=== PATIENT | male | born 1940 | race Caucasian/White ===

== ENCOUNTER 2022-05-17 17:41 | Emergency (ER) | payer MEDICARE ==
[2022-05-17] MEDS ORDERED: Adacel Vial IM ONE ×2 (19:27→19:35)
--- NOTE | 2022-05-17 20:00 | ERPHSYRPT ---
- History of Present Illness Time Seen by Provider: 05/17/22 18:28 Source: patient Exam Limitations: no limitations Patient Subjective Stated Complaint: "tripped over my boot and fell and hit head on rock" Triage Nursing Assessment: Pt aaox3, c/o pain and bruising to left side head s/p tripping over ortho boot and falling and hitting head on rock in yard at residence. Denies loss of conscousness, perrla, ambulatory, talkative. States pain a solid 5, Has h/o multiple cva's in past. Also c/o left shoulder pain due to fall. Physician History: 81-year-old male with history of diabetes mellitus with a wound on the left foot currently in a postop shoe, got tripped and fell forward hitting a rock on the left forehead without loss of consciousness. He has small abrasion on the left hand knuckle without any pain. Denies any numbness tingling or focal weakness. Complaining of mild to moderate dull aching headache around area of impact. No visual disturbance or difficulty speech. No chest pain palpitations or s hortness of breath before or after the fall. Occurred: just prior to arrival Severity: moderate Head Injury Location: frontal Method of Injury: fell Loss of Consciousness: no loss of consciousness Associated Symptoms: headaches, No nausea, No vomiting, No abdominal pain, No shortness of breath, No diaphoresis, No cough, No chest pain, No loss of appetite, No malaise, No syncope, No seizure, No weakness Hx Influenza Vaccination/Date Given: Yes Travel Risk - International Travel Have you traveled outside of the country in past 3 weeks: No - Coronavirus Screening Are you exhibiting any of the following symptoms?: No - Vaccine Status Have you recieved a Covid-19 vaccination: Yes 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 - Vaccination Dates Date of 2cond Vaccination (if applicable): 2020 - Review of Systems Constitutional: No Symptoms Eyes: No Symptoms Ears, Nose, & Throat: No Symptoms Respiratory: No Symptoms Cardiac: No Symptoms Abdominal/Gastrointestinal: No Symptoms Genitourinary Symptoms: No Symptoms Musculoskeletal: Injury Skin: Skin Lesions Neurological: Headache, No Focal Weakness, No Gait Changes, No Irritability, No Sensory Changes, No Speech Changes Psychological: No Symptoms Hematologic/Lymphatic: No Symptoms Immunological/Allergic: No Symptoms - Past Medical History Pertinent Past Medical History: Yes Neurological History: Stroke ENT History: No Pertinent History Cardiac History: No Pertinent History Respiratory History: No Pertinent History Endocrine Medical History: No Pertinent History Musculoskeletal History: No Pertinent History GI Medical History: No Pertinent History History: No Pertinent History Psycho-Social History: No Pertinent History Male Reproductive Disorders: No Pertinent History - Past Surgical History Past Surgical History: Yes (stint left carotid) Neuro Surgical History: No Pertinent History Cardiac: No Pertinent History Respiratory: No Pertinent History Gastrointestinal: No Pertinent History Genitourinary: No Pertinent History Musculoskeletal: No Pertinent History Male Surgical History: No Pertinent History - Social History Smoking Status: Former smoker How long have you smoked: 50 yrs Exposure to second hand smoke: No Drug Use: none Patient Lives Alone: Yes - Nursing Vital Signs Nursing Vital Signs: Initial Vital Signs Temperature 98.5 F 05/17/22 18:06 Pulse Rate 72 05/17/22 18:06 Respiratory Rate 20 05/17/22 18:06 O2 Sat by Pulse Oximetry 99 05/17/22 18:06 Pain Scale Pain Intensity 5 - [place] Coma Score Best Eye Response (Phyllis): (4) open spontaneously Best Verbal Response ([place]): (5) oriented Best Motor Response (Phyllis): (6) obeys commands [place] Total: 15 - Physical Exam General Appearance: no apparent distress, alert Head Injury: contusions (Left frontal. 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 Exam: normal hearing, normal speech, PERRL Coordination/Gait Exam: normal gait Motor/Sensory Exam: no motor deficit, no sensory deficit, no pronator drift Skin Exam: normal color, other (Abrasion left hand knuckle) SpO2 Interpretation: normal SpO2: 99 O2 Delivery: Room Air Ordered Tests: Active Orders 24 hr Category Date Time Status CERVICAL SPINE WO CONTRAST [CT] Stat Exams 05/17/22 18:02 Taken HEAD WITHOUT CONTRAST [CT] Stat Exams 05/17/22 18:01 Taken Medication Summary Discontinued Medications Generic Name Dose Route Start Last Admin Trade Name Monik PRN Reason Stop Dose Admin Diphtheria/Tetanus/Acell Pertussis 0.5 ml 05/17/22 19:27 05/17/22 19:38 Tdap --Diph,Pertuss(Acell),Tet Vac/Pf 0.5 Ml Vial IM 05/17/22 19:28 0.5 ml .ONCE ONE Administration Diphtheria/Tetanus/Acell Pertussis Confirm 05/17/22 19:35 Tdap --Diph,Pertuss(Acell),Tet Vac/Pf 0.5 Ml Vial Administered 05/17/22 19:36 Dose 0.5 ml IM .STK-MED ONE - Progress Progress: improved Progress Note: 05/17/22 19:58 Given Tylenol for symptomatic relief. Updated tetanus. CT head and cervical spine negative for any acute trauma related findings. Patient has no injury a nywhere else except from forehead and an abrasion on the left hand but no pain there. It was a clear mechanical fall, do not think needs any other work-up and is stable for discharge. Recommended using cane or walker for ambulation to avoid a fall which could be life-threatening because of being on Coumadin. Recommended staying with responsible person for next 24 to 48 hours and patient will go to his daughter's house with frequent neurochecks, discussed signs symptoms of worsening needing return to ER which he seems understanding. 05/17/22 19:59 Counseled pt/family regarding: diagnosis, need for follow-up, rad results - Departure Departure Disposition: Home Clinical Impression: Forehead contusion, Fall Condition: Stable Critical Care Time: No Referrals: BARON WHATLEY [Primary Care Provider] - Follow up/PCP as directed (In 2 days for reevaluation) Instructions: Concussion, Adult (DC), Closed Head Injury (DC) Additional Instructions: Intermittent ice application. Tylenol as needed for pain. Use cane/walker for ambulation all the time to avoid a fall as it could be dangerous because of being on blood thinner. Stay with responsible person for next 24 to 48 hours with frequent neurochecks, follow head injury/concussion instructions and return to ER for any worsening. Follow-up with primary care for reevaluation early next week.
[2022-05-17 20:30] VITALS: BP 154/98; PULSE 78; O2SAT 98
--- NOTE | 2022-05-17 20:51 | XRAY ---
Indication: Head injury following fall. Neck pain. Multiple contiguous axial images obtained through the head without contrast. Comparison: None Age-appropriate global atrophy and mild periventricular degenerative micro-ischemia bilaterally. Small subcentimeter remote infarct left anterior periventricular white matter. No acute intracranial hemorrhage, abnormal extra-axial fluid collection, or mass effect. Fourth ventricle is midline without hydrocephalus. Bony calvarium intact. Visualized paranasal sinuses and mastoid air cells are clear. Impression: Nonacute senile brain with small remote left cerebral infarct. Comment: Preliminary interpretation made by [facility]. No critical discrepancy.
--- NOTE | 2022-05-17 20:55 | XRAY ---
Indication: Head injury following fall. Neck pain. Multiple contiguous axial images obtained through the cervical spine. Sagittal and coronal reformatted images obtained. Comparison: None Osseous structures are demineralized. Axial images are negative for acute fracture, suspicious bony lesions, or spinal canal stenosis. Mild/moderate multilevel degenerative endplate spurring of the visualized cervical thoracic spine. Also mild/moderate multilevel bilateral degenerative facet hypertrophy and moderate atlantoaxial degenerative changes. Sagittal and coronal reformatted images demonstrates lordotic straightening, positional versus paraspinal spasm. Multilevel cervical thoracic degenerative disc space loss. No acute compression fracture, subluxation, or jumped facet. Normal appearing craniocervical junction. Visualized noncontrasted soft tissues demonstrates mild bilateral carotid calcifications and incidental left neck carotid endarterectomy surgical clips. Lung apices demonstrates tiny right apical calcific granulomas. Impression: 1. Cervical lordotic straightening, positional versus paraspinal spasm. 2. Negative acute fracture/subluxation. 3. Osteopenia, multilevel cervical thoracic degenerative spondylosis, bilateral carotid calcifications, and old granulomatous disease. Comment: Preliminary interpretation made by [facility]. No critical discrepancy.
== END 2022-05-17 20:25 | disposition home or self-care (01) ==
LOC: ED 17:41
DX: S00.83XA Contusion of other part of head, initial encounter (principal); W01.198A Fall on same level from slipping, tripping and stumbling with subsequent striking against other object, initial encounter; E11.9 Type 2 diabetes mellitus without complications; S60.512A Abrasion of left hand, initial encounter
CPT/HCPCS: 70450; 72125; 90471; 90715; 99283

== ENCOUNTER 2022-12-31 16:08 | Emergency (ER) | payer MEDICARE ==
--- NOTE | 2022-12-31 16:15 | ERPHSYRPT ---
- History of Present Illness Time Seen by Provider: 12/31/22 16:14 Source: patient Exam Limitations: no limitations Physician History: This an 82-year-old white male patient who has a history of diabetes, hyperlipidemia, gastroesophageal reflux disease and CVA who has been complaining of worsening low back pain with associated right hip pain for the last 2 weeks. Patient denies falls. Patient denies any acute trauma. Patient denies heavy lifting. There is been no popping sensation. Patient has not lost any bowel or bladder control. Patient has no known aortic issues. Patient denies chest pain and he denies shortness of breath. Timing/Duration: week(s) (2), worse Back Pain Location: lumbar spine, paraspinous muscles Back Pain Radiation: buttocks Severity of Pain-Max: moderate (Right hip and buttock) Severity of Pain-Current: moderate Modifying Factors: Improves With: movement Associated Symptoms: lower back pain, muscle spasms, No urinary incontinence, No loss of bowel control, No constipation, No nausea, No vomiting, No problems urinating, No numbness in legs/feet Previous symptoms: no prior history, no recent treatment Allergies/Adverse Reactions: No Known Drug Allergies Allergy (Verified 12/31/22 16:37) Home Medications: Atorvastatin Calcium 80 mg PO HS 12/31/22 [History] Famotidine 20 mg PO BID 12/31/22 [History] Fluoxetine HCl 20 mg [Prozac 20 MG] 20 mg PO BID 12/31/22 [History] Gabapentin 2 tab PO BID 12/31/22 [History] Glipizide [Glipizide ER] 2 tab PO BID 12/31/22 [History] Linaclotide [Linzess] 145 mcg PO DAILY 12/31/22 [History] Metformin HCl 500 mg [Glucophage 500 MG] See Rx Instructions .ROUTE .COMPLEX 12/31/22 [History] Adah-3/Dha/Epa/Fish Oil [Fish Oil 1,400 mg Softgel] 2 cap PO DAILY 12/31/22 [History] Omeprazole 40 mg PO DAILY 12/31/22 [History] Tamsulosin HCl 0.4 mg [Flomax 0.4 MG] 0.4 mg PO BID 12/31/22 [History] Warfarin Sodium See Rx Instructions .ROUTE .COMPLEX 12/31/22 [History] Hx Influenza Vaccination/Date Given: Yes Travel Risk - International Travel Have you traveled outside of the country in past 3 weeks: No - Coronavirus Screening Are you exhibiting any of the following symptoms?: No Close contact with a COVID-19 positive Pt in past 14-21 Days: No - Vaccine Status Have you recieved a Covid-19 vaccination: Yes [employer]: [employer] - Vaccination Dates Date of 2cond Vaccination (if applicable): 2020 - Review of Systems Constitutional: No Symptoms Eyes: No Symptoms Ears, Nose, & Throat: No Symptoms Respiratory: No Symptoms Cardiac: No Symptoms Abdominal/Gastrointestinal: No Symptoms Genitourinary Symptoms: No Symptoms Musculoskeletal: Back Pain, Joint Pain (Right hip) Skin: No Symptoms Neurological: No Symptoms Psychological: No Symptoms Endocrine: No Symptoms Hematologic/Lymphatic: No Symptoms Immunological/Allergic: No Symptoms All Other Systems: Reviewed and Negative - Past Medical History Pertinent Past Medical History: Yes Neurological History: Stroke ENT History: No Pertinent History Cardiac History: No Pertinent History Respiratory History: No Pertinent History Endocrine Medical History: No Pertinent History Musculoskeletal History: No Pertinent History GI Medical History: No Pertinent History History: No Pertinent History Psycho-Social History: No Pertinent History Male Reproductive Disorders: No Pertinent History - Past Surgical History Past Surgical History: Yes (stint left carotid) Neuro Surgical History: No Pertinent History Cardiac: No Pertinent History Respiratory: No Pertinent History Gastrointestinal: No Pertinent History Genitourinary: No Pertinent History Musculoskeletal: No Pertinent History Male Surgical History: No Pertinent History - Social History Smoking Status: Former smoker How long have you smoked: 50 yrs Exposure to second hand smoke: No Drug Use: none Patient Lives Alone: Yes - Nursing Vital Signs Nursing Vital Signs: Initial Vital Signs Temperature 97.6 F 12/31/22 16:24 Pulse Rate 65 12/31/22 16:24 Respiratory Rate 17 12/31/22 16:24 Blood Pressure 158/83 12/31/22 16:24 O2 Sat by Pulse Oximetry 97 12/31/22 16:24 Pain Scale Pain Intensity [Lower Back] 7 Pain Intensity 7 - Physical Exam General Appearance: no apparent distress, alert, anxiety Eye Exam: PERRL/EOMI, eyes nml inspection Ears, Nose, Throat Exam: normal ENT inspection, moist mucous membranes Neck Exam: normal inspection, non-tender, supple, full range of motion Respiratory Exam: airway intact, No chest tenderness, No respiratory distress Gastrointestinal Exam: No tenderness Rectal Exam: not done Back Exam: normal inspection, vertebral tenderness (Lumbar level), decreased range of motion, muscle spasm Extremity Exam: normal inspection (Number level), pelvis stable, tenderness (Right hip) Neurologic Exam: alert, oriented x 3, 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, 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 as tested, normal mood/affect, nml cerebellar function, nml station & gait, sensation nml Skin Exam: normal color, warm, dry Lymphatic Exam: No adenopathy SpO2 Interpretation: normal O2 Delivery: Room Air - Course Nursing assessment & vital signs reviewed: Yes Ordered Tests: Active Orders 24 hr Category Date Time Status ABDOMEN AND PELVIS W/0 CONTRAS [CT] Stat Exams 12/31/22 16:30 Completed RECONSTRUCTION [CT] Stat Exams 12/31/22 16:31 Completed Medication Summary Discontinued Medications Generic Name Dose Route Start Last Admin Trade Name Freq PRN Reason Stop Dose Admin Methylprednisolone Sodium 0 mg 12/31/22 17:36 12/31/22 17:43 Succinate 125 mg/ Sterile IM 12/31/22 17:37 125 mg Water 2 ml STAT ONE Administration Methylprednisolone Sodium Succinate Confirm 12/31/22 17:40 Methylprednis Sod Succ 125 Mg/2 Ml Vial Administered 12/31/22 17:41 Dose 125 mg .ROUTE .STK-MED ONE Orphenadrine Citrate 100 mg 12/31/22 17:36 12/31/22 17:41 Orphenadrine Citrate 100 Mg Er Tab PO 12/31/22 17:37 Not Given STAT ONE Oxycodone/Acetaminophen 1 tab 12/31/22 17:36 12/31/22 17:43 Oxycodone Hcl/Apap 5 Mg/325 Mg Tablet PO 12/31/22 17:37 1 tab STAT STA Administration Oxycodone/Acetaminophen Confirm 12/31/22 17:40 Oxycodone Hcl/Apap 5 Mg/325 Mg Tablet Administered 12/31/22 17:41 Dose 1 tab .ROUTE .STK-MED ONE Sterile Water Confirm 12/31/22 17:40 Water For Injection,Sterile 10 Ml Vial Administered 12/31/22 17:41 Dose 10 ml IJ .STK-MED ONE - Progress Progress: improved, pain not gone completely Progress Note: 12/31/22 17:08 This patient's medical issue is 1 of low to moderate complexity. The level of complexity and the work-up performed is based on review of the patient's past medical history, review the patient's medication list, review of the patient's drug allergy list, history present illness and physical findings on examination. This patient's work-up includes CT scan of the abdomen and pelvis with reconstruction of the lumbar spine to include the right hip. We also want to evaluate aorta in the abdomen in this elderly patient. 12/31/22 18:10 CT scan of the abdomen pelvis without contrast shows chronic findings without abdominal aortic aneurysm. There is a tiny left mid abdomen mesenteric adenitis with mild diffuse fecal stasis. No acute significant findings. CT scan lumbar spine reconstruction without contrast shows chronic L4-L5 degenerative changes as well as bilateral SI joint degenerative changes. No evidence of acute fracture, subluxation or dislocations. Counseled pt/family regarding: diagnosis, need for follow-up, rad results Medical Desision Making - Independent Historian Additional History obtained from: Child - Diagnostic Testing Diagnostic test were ordered, analyzed, and reviewed by me: Yes Radiological Interpretation: Reviewed by me, Teleradiologist Report - Risk of complications The pt has a mod risk of morbidity or mortality based on: Need for prescription drug management - Departure Departure Disposition: Home Clinical Impression: Back pain, Right hip pain, Mesenteric adenitis Condition: Stable Critical Care Time: No Referrals: BRADEN BEATTY [Primary Care Provider] - Follow up/PCP as directed Additional Instructions: Take your medication as prescribed. Follow-up with your primary care provider tomorrow, 01/01/2023, by phone to make an appointment for further evaluation management. Prescriptions: Oxycodone HCl/Acetaminophen [Percocet 5-325 mg Tablet] 1 each PO Q12H PRN PRN #6 tablet MDD 2 PRN Reason: Moderate To Severe Pain
[2022-12-31 16:48] VITALS: TEMP 97.6
[2022-12-31 17:30] VITALS: RESP 18
[2022-12-31] MEDS ORDERED: PERCOCET TABLET 5/325MG PO STA (17:36)
[2022-12-31] MEDS ORDERED: solu-MEDROL 125 MG, Sterile H2O 10 ml 2 ML IM ONE ×2 (17:36)
[2022-12-31] MEDS ORDERED: Norflex 100 MG Tablet PO ONE (17:36)
[2022-12-31] MEDS ORDERED: PERCOCET TABLET 5/325MG ONE (17:40)
[2022-12-31] MEDS ORDERED: solu-MEDROL ONE (17:40)
[2022-12-31] MEDS ORDERED: Sterile H2O 10 ml IJ ONE (17:40)
--- NOTE | 2022-12-31 18:03 | XRAY ---
Indication: Lumbar and right hip pain. Multiple contiguous axial images obtained through the abdomen and pelvis without contrast. Comparison: None Lung bases demonstrates moderate scattered fibrosis/scarring bilaterally. No infiltrate or effusion. Heart borderline enlarged. Small hiatal hernia. Stomach distended with food/fluid. Noncontrasted stomach and bowel loops appear nonobstructed with normal appearing appendix. Mild scattered colonic fecal debris throughout. Scattered tiny left mid abdomen mesenteric nodes with stranding favoring adenitis. Enlarged prostate gland with radiation seeds. No free fluid/air. Remaining liver, gallbladder, pancreas, spleen, adrenal glands, kidneys, ureters, and bladder are unremarkable for noncontrast exam. Mild scattered aortoiliac calcifications without AAA. Osseous structures intact with osteopenia and mild/moderate flowing osteophytes throughout the spine favoring diffuse idiopathic skeletal hyperostosis (DISH). Mild degenerative changes both hips. No suspicious bony lesions. Moderate bilateral fatty inguinal hernias. Impression: 1. Mild diffuse fecal stasis. 2. Tiny left mid abdomen mesenteric adenitis. 3. Chronic findings including pulmonary fibrosis/scarring, borderline cardiomegaly, hiatal hernia, enlarged prostate with radiation seeds, chronic bony findings, bilateral fatty inguinal hernias, and arteriosclerotic disease.
--- NOTE | 2022-12-31 18:07 | XRAY ---
Indication: Back and right hip pain. Axial, coronal, and sagittal reformatted images lumbar spine obtained using raw data from same day CT abdomen/pelvis. Comparison: None Osseous structures demineralized. Axial images negative for acute fracture, suspicious bony lesions, or spinal canal stenosis. Mild/moderate multilevel thoracolumbar flowing osteophytes favoring diffuse idiopathic skeletal hyperostosis (DISH). Mild broad-based L4-L5 disc osteophyte complex. Facets are symmetric. Mild degenerative changes both SI joints. Sagittal and coronal reformatted images demonstrates normal lumbar alignment with L4-L5 disc space narrowing. No acute compression fracture or subluxation. CT abdomen/pelvis reported separately. Impression: Chronic findings including osteopenia, DISH, L4-L5 degenerative disc disease, and bilateral SI joints degenerative changes. Remaining CT lumbar spine negative.
[2022-12-31 18:29] VITALS: BP 184/91; PULSE 64; O2SAT 99
== END 2022-12-31 18:29 | disposition home or self-care (01) ==
LOC: ED 16:08
DX: M54.50 Low back pain, unspecified (principal); M25.551 Pain in right hip; I88.0 Nonspecific mesenteric lymphadenitis; E11.9 Type 2 diabetes mellitus without complications; E78.5 Hyperlipidemia, unspecified; Z79.84 Long term (current) use of oral hypoglycemic drugs; Z79.01 Long term (current) use of anticoagulants; Z79.899 Other long term (current) drug therapy
CPT/HCPCS: 74176; 76376; 96372; 99283; J2930; A9270-GY

== ENCOUNTER 2023-05-28 11:06 | Emergency (ER) | payer MEDICARE ==
[2023-05-28 11:24] VITALS: TEMP 97
--- NOTE | 2023-05-28 11:39 | ERPHSYRPT ---
- History of Present Illness Time Seen by Provider: 05/28/23 11:10 Historian: patient, family Exam Limitations: no limitations Patient Subjective Stated Complaint: pt here for lower abd pain that started early this morning, sharp pain, no fever, no vomitng,last bm thursday Triage Nursing Assessment: pt alert, resp easy, walked in, skin w.d.p, swelling to lower legs that is normal for him, pt has banddage to right arm and back where he had spots removed Physician History: 82 years old male presented in the ER with chief complaint of lower abdominal pain waking him up from sleep around 4 AM. Patient reports he has a constant urge to have bowel movement. He has been trying but not able to have 1. Last bowel movement was 2 days ago. Reports dull aching to sharp lower abdominal pain but more on the left side without associated nausea or vomiting. Denies any urinary complaints. Does have history of constipation, taking stool softeners and fiber supplements. Patient rates pain 6/10 intensity but does not want any pain medications. Allergies/Adverse Reactions: No Known Drug Allergies Allergy (Verified 05/28/23 11:19) Home Medications: Atorvastatin Calcium 80 mg PO HS 12/31/22 [History] Famotidine 20 mg PO BID 12/31/22 [History] Fluoxetine HCl 20 mg [Prozac 20 MG] 20 mg PO BID 12/31/22 [History] Gabapentin 2 tab PO BID 12/31/22 [History] Glipizide [Glipizide ER] 2 tab PO BID 12/31/22 [History] Linaclotide [Linzess] 145 mcg PO DAILY 12/31/22 [History] Metformin HCl 500 mg [Glucophage 500 MG] See Rx Instructions .ROUTE .COMPLEX 12/31/22 [History] [place]-3/Dha/Epa/Fish Oil [Fish Oil 1,400 mg Softgel] 2 cap PO DAILY 12/31/22 [History] Omeprazole 40 mg PO DAILY 12/31/22 [History] Tamsulosin HCl 0.4 mg [Flomax 0.4 MG] 0.4 mg PO BID 12/31/22 [History] Warfarin Sodium See Rx Instructions .ROUTE .COMPLEX 12/31/22 [History] Hx Tetanus, Diphtheria Vaccination/Date Given: No Hx Influenza Vaccination/Date Given: Yes Hx Pneumococcal Vaccination/Date Given: Yes Immunizations Up to Date: Yes Travel Risk - International Travel Have you traveled outside of the country in past 3 weeks: No - Coronavirus Screening Are you exhibiting any of the following symptoms?: No Close contact with a COVID-19 positive Pt in past 14-21 Days: No - Vaccine Status Have you recieved a Covid-19 vaccination: Yes 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[employer] - Vaccination Dates Date of 2cond Vaccination (if applicable): 2020 - Review of Systems Constitutional: No Symptoms Eyes: No Symptoms Respiratory: No Symptoms Cardiac: No Symptoms Abdominal/Gastrointestinal: Abdominal Pain, Constipation Genitourinary Symptoms: No Symptoms Musculoskeletal: Arthralgias Skin: No Symptoms Neurological: Irritability Endocrine: No Symptoms Hematologic/Lymphatic: No Symptoms - Past Medical History Pertinent Past Medical History: Yes Neurological History: Stroke ENT History: No Pertinent History Cardiac History: No Pertinent History, High Cholesterol Respiratory History: No Pertinent History Endocrine Medical History: Diabetes Type II Musculoskeletal History: No Pertinent History GI Medical History: No Pertinent History History: No Pertinent History Psycho-Social History: No Pertinent History Male Reproductive Disorders: Prostate Problems Other Medical History: carotid artery blockage, poor circulation to bilat lower extremities - Past Surgical History Past Surgical History: Yes (stint left carotid) Neuro Surgical History: No Pertinent History Cardiac: No Pertinent History Respiratory: No Pertinent History Gastrointestinal: No Pertinent History Genitourinary: No Pertinent History Musculoskeletal: No Pertinent History Male Surgical History: No Pertinent History Other Surgical History: stents in bilat legs due to poor circulation - Social History Smoking Status: Former smoker How long have you smoked: 50 yrs Exposure to second hand smoke: No Drug Use: none Patient Lives Alone: Yes - Nursing Vital Signs Nursing Vital Signs: Initial Vital Signs Temperature 97.0 F 05/28/23 11:23 Pulse Rate 71 05/28/23 11:23 Respiratory Rate 16 05/28/23 11:23 Blood Pressure 152/67 05/28/23 11:23 O2 Sat by Pulse Oximetry 96 05/28/23 11:23 Pain Scale Pain Intensity 4 - Physical Exam General Appearance: no apparent distress, alert Eye Exam: PERRL/EOMI Ears, Nose, Throat Exam: normal ENT inspection Neck Exam: normal inspection, full range of motion Respiratory Exam: normal breath sounds, lungs clear Cardiovascular Exam: regular rate/rhythm, normal heart sounds Gastrointestinal/Abdomen Exam: soft, normal bowel sounds, tenderness (Mild tenderness suprapubic and left lower quadrant) Extremity Exam: normal inspection, normal range of motion Neurologic Exam: alert, oriented x 3, cooperative Skin Exam: normal color SpO2 Interpretation: normal SpO2: 96 O2 Delivery: Room Air Lab/Rad Data: Laboratory Result Diagrams 05/28/23 12:05 05/28/23 11:36 Laboratory Results 05/28/23 05/28/23 05/28/23 Range/Units 13:56 12:15 12:05 WBC 7.8 (4.0-10.5) x10^3/uL RBC 4.16 (4.1-5.6) x10^6/uL Hgb 13.3 (12.5-18.0) g/dL Hct 40.3 L (42-50) % MCV 96.9 (78-100) fL MCH 32.0 (26-32) pg MCHC 33.0 (32-36) g/dL RDW 14.0 (11.5-14.0) % Plt Count 241 (150-450) x10^3/uL MPV 9.2 (7.5-11.0) fL Gran % 78.3 H (36.0-66.0) % Immature Gran % (Auto) 0.4 (0.00-0.4) % Nucleat RBC Rel Count 0.0 (0.00-0.1) % Eos # (Auto) 0.13 (0-0.5) x10^3/uL Immature Gran # (Auto) 0.03 (0.00-0.03) x10^3u/L Absolute Lymphs (auto) 0.89 L (1.0-4.6) x10^3/uL Absolute Monos (auto) 0.59 (0.0-1.3) x10^3/uL Absolute Nucleated RBC 0.00 (0.00-0.01) x10^3u/L Lymphocytes % 11.5 L (24.0-44.0) % Monocytes % 7.6 (0.0-12.0) % Eosinophils % 1.7 (0.00-5.0) % Basophils % 0.5 (0.0-0.4) % Absolute Granulocytes 6.08 (1.4-6.9) x10^3/uL Basophils # 0.04 (0-0.4) x10^3/uL PT (9.4-12.5) SECONDS INR (0.8-3.0) Sodium (137-145) mmol/L Potassium (3.5-5.1) mmol/L Chloride (98-107) mmol/L Carbon Dioxide (22-30) mmol/L Anion Gap (5-15) MEQ/L BUN (9-20) mg/dL Creatinine (0.66-1.25) mg/dL Estimated GFR ML/MIN Glucose (74-106) mg/dL Lactic Acid 1.8 (0.4-2.0) Calcium (8.4-10.2) mg/dL Total Bilirubin (0.2-1.3) mg/dL AST (17-59) U/L ALT (0-50) U/L Alkaline Phosphatase (38-126) U/L Serum Total Protein (6.3-8.2) g/dL Albumin (3.5-5.0) g/dL Lipase (23-300) U/L Urine Color Yellow (Yellow) Urine Appearance Clear (Clear) Urine pH 7.0 (4.6-8.0) Ur Specific [place] 1.015 (1.005-1.030) Urine Protein 30 (Negative) Urine Glucose (UA) Negative (Negative) mg/dL Urine Ketones Negative (Negative) Urine Blood Small A (Negative) Urine Nitrite Negative (Negative) Urine Bilirubin Negative (Negative) Urine Urobilinogen 1.0 A (0.2) mg/dL Ur Leukocyte Esterase Negative (Negative) U Hyaline Cast (Auto) NONE SEEN (0-2) /LPF Urine Microscopic RBC 6-10 A (0-5) /HPF Urine Microscopic WBC 0-2 (0-5) /HPF Ur Epithelial Cells None Seen (None Seen) /HPF Urine Bacteria None Seen (None Seen) /HPF Urine Culture Reflexed YES (NO) 05/28/23 05/28/23 Range/Units 11:36 11:36 WBC (4.0-10.5) x10^3/uL RBC (4.1-5.6) x10^6/uL Hgb (12.5-18.0) g/dL Hct (42-50) % MCV (78-100) fL MCH (26-32) pg MCHC (32-36) g/dL RDW (11.5-14.0) % Plt Count (150-450) x10^3/uL MPV (7.5-11.0) fL Gran % (36.0-66.0) % Immature Gran % (Auto) (0.00-0.4) % Nucleat RBC Rel Count (0.00-0.1) % Eos # (Auto) (0-0.5) x10^3/uL Immature Gran # (Auto) (0.00-0.03) x10^3u/L Absolute Lymphs (auto) (1.0-4.6) x10^3/uL Absolute Monos (auto) (0.0-1.3) x10^3/uL Absolute Nucleated RBC (0.00-0.01) x10^3u/L Lymphocytes % (24.0-44.0) % Monocytes % (0.0-12.0) % Eosinophils % (0.00-5.0) % Basophils % (0.0-0.4) % Absolute Granulocytes (1.4-6.9) x10^3/uL Basophils # (0-0.4) x10^3/uL PT 47.1 H (9.4-12.5) SECONDS INR 4.79 H (0.8-3.0) Sodium 138 (137-145) mmol/L Potassium 4.5 (3.5-5.1) mmol/L Chloride 107 (98-107) mmol/L Carbon Dioxide 23 (22-30) mmol/L Anion Gap 12.8 (5-15) MEQ/L BUN 22 H (9-20) mg/dL Creatinine 1.25 (0.66-1.25) mg/dL Estimated GFR 58.2 ML/MIN Glucose 152 H (74-106) mg/dL Lactic Acid (0.4-2.0) Calcium 8.5 (8.4-10.2) mg/dL Total Bilirubin 0.80 (0.2-1.3) mg/dL AST 26 (17-59) U/L ALT 20 (0-50) U/L Alkaline Phosphatase 74 (38-126) U/L Serum Total Protein 7.5 (6.3-8.2) g/dL Albumin 4.1 (3.5-5.0) g/dL Lipase 87 (23-300) U/L Urine Color (Yellow) Urine Appearance (Clear) Urine pH (4.6-8.0) Ur Specific [place] (1.005-1.030) Urine Protein (Negative) Urine Glucose (UA) (Negative) mg/dL Urine Ketones (Negative) Urine Blood (Negative) Urine Nitrite (Negative) Urine Bilirubin (Negative) Urine Urobilinogen (0.2) mg/dL Ur Leukocyte Esterase (Negative) U Hyaline Cast (Auto) (0-2) /LPF Urine Microscopic RBC (0-5) /HPF Urine Microscopic WBC (0-5) /HPF Ur Epithelial Cells (None Seen) /HPF Urine Bacteria (None Seen) /HPF Urine Culture Reflexed (NO) - Progress Progress: improved, re-examined Progress Note: 05/28/23 15:20 82 years old is evaluated in the ER for lower abdominal pain with constant desire to have a bowel movement since morning. Patient has minimal tenderness in the lower abdomen especially in the left lower quadrant. Declined to have any pain medication. Not in any distress. Workup showed normal white count, fairly unremarkable chemistries and no UTI. CT abdomen pelvis did not show any acute finding in the lower abdomen but chronic. No obstruction, colitis, perforation, diverticulitis or cystitis reported. No kidney stones. Does have a incidental finding of bilateral bibasilar airspace opacities. Discussed the results of workup with patient and family in the want to go for treatment for pneumonia. I will start him on cefdinir. Patient is on Coumadin and INR is 4.79. I have discussed with pharmacist Reed who recommended holding off on Coumadin for next 2 days and recheck on Thursday and frequent monitoring while being on antibiotics. I have discussed the plan of Coumadin monitoring with patient and daughter who manages patient's healthcare staff and they are okay with it. Recommended taking Tylenol as needed and not to take any NSAIDs. Discussed signs symptoms of worsening needing return to ER which he seems understanding. Stable for discharge. Counseled pt/family regarding: lab results, diagnosis, rad results Medical Desision Making - Independent Historian Additional History obtained from: Child - Discussion of managment Care discussed with:: on-call "doc" (Pharm.Ainsley Mcbride) Reviewed:: Test results Agreed on:: Treatment plan, need for follow-up - Risk of complications The pt has a mod risk of morbidity or mortality based on: Need for prescription drug management - Departure Departure Disposition: Home Clinical Impression: Bilateral pneumonia, Lower abdominal pain, Elevated INR (international normalized ratio) Condition: Stable Critical Care Time: No Referrals: BRADEN BEATTY [Primary Care Provider] - Follow up with PCP 1 day Instructions: Pneumonia, Adult (DC), Severe Abdominal Pain, Adult (DC) Additional Instructions: Take Tylenol as needed. Do not take ibuprofen Aleve or any other NSAIDs. Monitor your INR regularly. Hold off on your Coumadin for today and tomorrow and recheck day after tomorrow before restarting. Follow-up with primary care for reevaluation in 1 to 2 days. Return to ER for any worsening. Prescriptions: Cefdinir 300 mg PO BID 8 Days #16 cap
--- NOTE | 2023-05-28 12:21 | XRAY ---
Indication: Lower abdomen pain. Multiple contiguous axial images obtained through the abdomen and pelvis without contrast. Comparison: December 31, 2022 Lung again demonstrates scattered fibrosis/scarring. New bibasilar patchy groundglass airspace disease without consolidation/effusion. Heart again borderline enlarged. Stable small hiatal hernia. Noncontrasted stomach and bowel loops again nonobstructed with normal appearing appendix. Left midabdomen again demonstrates tiny mesenteric nodes with stranding favoring adenitis. Stable enlarged prostate gland with radiation seeds. No free fluid/air. Remaining liver, gallbladder, pancreas, spleen, adrenal glands, kidneys, ureters, and bladder are unremarkable for noncontrast exam. Stable mild scattered aortoiliac calcifications without AAA. Osseous structures intact again with osteopenia, flowing osteophytes to the spine and mild bilateral hip degenerative changes. Stable moderate-sized bilateral fatty inguinal hernias. Impression: 1. New bibasilar patchy ground glass airspace disease. 2. Again left midabdomen mesenteric adenitis. 3. Chronic findings including pulmonary fibrosis/scarring, borderline cardiomegaly, hiatal hernia, enlarged prostate with radiation seeds, chronic bony findings, bilateral fatty inguinal hernias, and arteriosclerotic disease.
[2023-05-28 12:26] LABS: Absolute Neutrophil Ct (ANC) 6.08 x10^3/uL (1.4-6.9); BASOPHIL % 0.5 % (0.0-0.4); Basophil (Absolute #) 0.04 x10^3/uL (0-0.4); Eosinophil % 1.7 % (0.00-5.0); Eosinophil (Absolute #) 0.13 x10^3/uL (0-0.5); Hematocrit 40.3 % (42-50); Hemoglobin 13.3 g/dL (12.5-18.0); IMMATURE GRAN # 0.03 x10^3u/L (0.00-0.03); IMMATURE GRAN % 0.4 % (0.00-0.4); Lymphocyte (Absolute #) 0.89 x10^3/uL (1.0-4.6); Lymphocytes % 11.5 % (24.0-44.0); Mean Cell Volume 96.9 fL (78-100); Mean Platelet Volume 9.2 fL (7.5-11.0); Monocyte (Absolute #) 0.59 x10^3/uL (0.0-1.3); Monocytes % 7.6 % (0.0-12.0); Neutrophil % 78.3 % (36.0-66.0); Platelet Count 241 x10^3/uL (150-450); Red Blood Count 4.16 x10^6/uL (4.1-5.6); White Blood Count 7.8 x10^3/uL (4.0-10.5)
[2023-05-28 12:42] LABS: ALBUMIN 4.1 g/dL (3.5-5.0); ANION GAP 12.8 MEQ/L (5-15); BILIRUBIN,TOTAL 0.8 mg/dL (0.2-1.3); Calcium 8.5 mg/dL (8.4-10.2); Creatinine 1 1.25 mg/dL (0.66-1.25); EST GLOMERULAR FILTRATION RATE 58.2 ML/MIN; Potassium 4.5 mmol/L (3.5-5.1); Total Protein 7.5 g/dL (6.3-8.2)
[2023-05-28 14:03] VITALS: BP 160/76; PULSE 82; RESP 17
[2023-05-28 14:13] LABS: INR 4.79 (0.8-3.0); PROTIME 47.1 SECONDS (9.4-12.5)
[2023-05-28 14:53] LABS: Appearance Clear (Clear); Bacteria None Seen /HPF (None Seen); Bilirubin Negative (Negative); Blood Small (Negative); Epithelial Cells None Seen /HPF (None Seen); Glucose, Urine Negative (Negative); Hyaline Casts NONE SEEN /LPF (0-2); Ketones Negative (Negative); Leukocyte Esterase Negative (Negative); Nitrite Negative (Negative); Protein,Urine Dip 30 (Negative); Specific Gravity 1.015 (1.005-1.030); WBC 0-2 /HPF (0-5)
[2023-05-28 14:55] LABS: ADD URINE CULTURE? YES (NO)
[2023-05-28 15:25] VITALS: O2SAT 96
== END 2023-05-28 15:53 | disposition home or self-care (01) ==
LOC: ED 11:06
DX: J18.9 Pneumonia, unspecified organism (principal); R10.30 Lower abdominal pain, unspecified; R79.1 Abnormal coagulation profile; E78.5 Hyperlipidemia, unspecified; E11.9 Type 2 diabetes mellitus without complications; Z79.84 Long term (current) use of oral hypoglycemic drugs; Z79.01 Long term (current) use of anticoagulants; Z79.899 Other long term (current) drug therapy
CPT/HCPCS: 36415; 74176; 80053; 81001; 83605; 83690; 85025; 85610; 87086; 99283

== ENCOUNTER 2023-06-24 15:41 | Observation (INO) | payer MEDICARE ==
--- NOTE | 2023-06-24 15:58 | ERPHSYRPT ---
- History of Present Illness Time Seen by Provider: 06/24/23 15:58 Source: patient Exam Limitations: no limitations Physician History: This is an 82-year-old white male patient who states he has no symptoms but was told he needed to come to the emergency department because of his elevated PTT/INR that was drawn today. Patient was sent to us from the clinic. Patient ambulated on his own into the emergency room #4. I reviewed the out patient chest x-ray results that the radiologist interpreted. The x-ray was performed today secondary to complaint listed as persistent cough for 2 weeks. Patient denies that when we spoke to him in the emergency department today. The impression states mild left lower lobe interstitial alveolar opacities. Possible pneumonia in the right clinical setting. Patient has not had a fever. He is not short of breath. Patient's laboratory data was simply a PT/INR that was drawn today. It shows a PTT of 73.4 and an INR of 7.7 respectively. Patient does have a history of peripheral vascular disease (left carotid stent), prostate issues, stroke in the distant past, diabetes and gastroesophageal reflux disease as well as hyperlipidemia. He has not noticed any bleeding whatsoever from any site. Patient does not have chest pain. He has no abdominal pain. Timing/Duration: today Severity: mild Associated Symptoms: denies symptoms Allergies/Adverse Reactions: No Known Drug Allergies Allergy (Verified 06/24/23 15:57) Home Medications: Atorvastatin Calcium 80 mg PO HS 12/31/22 [History] Famotidine 20 mg PO BID 12/31/22 [History] Fluoxetine HCl 20 mg [Prozac 20 MG] 20 mg PO BID 12/31/22 [History] Gabapentin 2 tab PO BID 12/31/22 [History] Glipizide [Glipizide ER] 2 tab PO BID 12/31/22 [History] Metformin HCl 500 mg [Glucophage 500 MG] See Rx Instructions .ROUTE .COMPLEX 12/31/22 [History] [place]-3/Dha/Epa/Fish Oil [Fish Oil 1,400 mg Softgel] 2 cap PO DAILY 12/31/22 [History] Omeprazole 40 mg PO DAILY 12/31/22 [History] Tamsulosin HCl 0.4 mg [Flomax 0.4 MG] 0.4 mg PO BID 12/31/22 [History] Warfarin Sodium See Rx Instructions .ROUTE .COMPLEX 12/31/22 [History] Metoprolol Succinate 50 mg [Toprol Xl 50 MG] 50 mg PO DAILY 06/24/23 [History] Pioglitazone 30 mg [Actos 30 MG] 30 mg PO DAILY 06/24/23 [History] Hx Tetanus, Diphtheria Vaccination/Date Given: No Hx Influenza Vaccination/Date Given: Yes Hx Pneumococcal Vaccination/Date Given: Yes Travel Risk - International Travel Have you traveled outside of the country in past 3 weeks: No - Coronavirus Screening Are you exhibiting any of the following symptoms?: No Close contact with a COVID-19 positive Pt in past 14-21 Days: No - Vaccine Status Have you recieved a Covid-19 vaccination: Yes 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 Dates Date of 2cond Vaccination (if applicable): 2020 - Review of Systems Constitutional: No Symptoms Eyes: No Symptoms Ears, Nose, & Throat: No Symptoms Respiratory: No Symptoms Cardiac: No Symptoms Abdominal/Gastrointestinal: No Symptoms Genitourinary Symptoms: No Symptoms Musculoskeletal: No Symptoms Skin: No Symptoms Neurological: No Symptoms Psychological: No Symptoms Endocrine: No Symptoms Hematologic/Lymphatic: No Symptoms Immunological/Allergic: No Symptoms All Other Systems: Reviewed and Negative - Past Medical History Pertinent Past Medical History: Yes Neurological History: Stroke ENT History: No Pertinent History Cardiac History: No Pertinent History, High Cholesterol Respiratory History: No Pertinent History Endocrine Medical History: Diabetes Type II Musculoskeletal History: No Pertinent History GI Medical History: No Pertinent History History: No Pertinent History Psycho-Social History: No Pertinent History Male Reproductive Disorders: Prostate Problems Other Medical History: carotid artery blockage, poor circulation to bilat lower extremities - Past Surgical History Past Surgical History: Yes (stint left carotid) Neuro Surgical History: No Pertinent History Cardiac: No Pertinent History Respiratory: No Pertinent History Gastrointestinal: No Pertinent History Genitourinary: No Pertinent History Musculoskeletal: No Pertinent History Male Surgical History: No Pertinent History Other Surgical History: stents in bilat legs due to poor circulation - Social History Smoking Status: Former smoker How long have you smoked: 50 yrs Exposure to second hand smoke: No Drug Use: none Patient Lives Alone: Yes - Nursing Vital Signs Nursing Vital Signs: Initial Vital Signs Temperature 97.1 F 06/24/23 15:41 Pulse Rate 58 L 06/24/23 15:41 Respiratory Rate 18 06/24/23 15:41 Blood Pressure 144/53 06/24/23 15:41 O2 Sat by Pulse Oximetry 98 06/24/23 15:41 Pain Scale Pain Intensity 0 - Physical Exam General Appearance: no apparent distress, alert, anxiety, obese Eye Exam: PERRL/EOMI, eyes nml inspection Ears, Nose, Throat Exam: normal ENT inspection, moist mucous membranes Neck Exam: normal inspection, non-tender, supple, full range of motion Respiratory Exam: normal breath sounds, lungs clear, airway intact, No chest tenderness, No respiratory distress Cardiovascular Exam: regular rate/rhythm, normal heart sounds, normal peripheral pulses Gastrointestinal/Abdomen Exam: soft, normal bowel sounds, No tenderness Rectal Exam: not done Back Exam: normal inspection, normal range of motion, No CVA tenderness, No vertebral tenderness Extremity Exam: normal inspection, normal range of motion, pelvis stable Neurologic Exam: alert, oriented x 3, cooperative, 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, normal mood/affect, nml cerebellar function, nml station & gait, sensation nml Skin Exam: normal color, warm, dry Lymphatic Exam: No adenopathy SpO2 Interpretation: normal O2 Delivery: Room Air - Course Nursing assessment & vital signs reviewed: Yes Ordered Tests: Active Orders 24 hr Category Date Time Status IV Insertion STAT Care 06/24/23 16:24 Active Pulse Oximetry (ED) STAT Care 06/24/23 16:24 Active BLOOD CULTURE Stat Lab 06/24/23 17:05 Received CBC W DIFF Stat Lab 06/24/23 16:50 Completed CMP Stat Lab 06/24/23 16:50 Completed MAGNESIUM Stat Lab 06/24/23 16:50 Completed NT PRO BNPII Stat Lab 06/24/23 16:50 Completed Transfer Order Routine Transfer 06/24/23 Ordered Medication Summary Discontinued Medications Generic Name Dose Route Start Last Admin Trade Name Freq PRN Reason Stop Dose Admin Ceftriaxone Sodium 1 gm in 100 mls @ 200 mls/hr 06/24/23 16:45 06/24/23 17:46 Rocephin 1 Gm / 100 Ml Nacl IV 06/24/23 17:14 Infused STAT ONE Infusion Ceftriaxone Sodium Confirm 06/24/23 17:00 Rocephin 1 Gm / 100 Ml Nacl Administered 06/24/23 17:01 Dose 1 gm in 100 mls @ ud IV .STK-MED ONE Phytonadione 10 mg 06/24/23 16:28 06/24/23 17:10 Phytonadione 10 Mg/Ml Amp SQ 06/24/23 16:29 10 mg STAT ONE Administration Phytonadione Confirm 06/24/23 17:00 Phytonadione 10 Mg/Ml Amp Administered 06/24/23 17:01 Dose 10 mg .ROUTE .STK-MED ONE Lab/Rad Data: Laboratory Result Diagrams 06/24/23 16:50 06/24/23 16:50 Laboratory Results 06/24/23 06/24/23 06/24/23 Range/Units 16:50 16:50 16:50 WBC 6.0 (4.0-10.5) x10^3/uL RBC 4.01 L (4.1-5.6) x10^6/uL Hgb 12.8 (12.5-18.0) g/dL Hct 39.9 L (42-50) % MCV 99.5 (78-100) fL MCH 31.9 (26-32) pg MCHC 32.1 (32-36) g/dL RDW 14.7 H (11.5-14.0) % Plt Count 197 (150-450) x10^3/uL MPV 9.7 (7.5-11.0) fL Gran % 65.4 (36.0-66.0) % Immature Gran % (Auto) 0.3 (0.00-0.4) % Nucleat RBC Rel Count 0.0 (0.00-0.1) % Eos # (Auto) 0.31 (0-0.5) x10^3/uL Immature Gran # (Auto) 0.02 (0.00-0.03) x10^3u/L Absolute Lymphs (auto) 1.10 (1.0-4.6) x10^3/uL Absolute Monos (auto) 0.60 (0.0-1.3) x10^3/uL Absolute Nucleated RBC 0.00 (0.00-0.01) x10^3u/L Lymphocytes % 18.3 L (24.0-44.0) % Monocytes % 10.0 (0.0-12.0) % Eosinophils % 5.2 H (0.00-5.0) % Basophils % 0.8 (0.0-0.4) % Absolute Granulocytes 3.93 (1.4-6.9) x10^3/uL Basophils # 0.05 (0-0.4) x10^3/uL Sodium 141 (137-145) mmol/L Potassium 4.6 (3.5-5.1) mmol/L Chloride 107 (98-107) mmol/L Carbon Dioxide 27 (22-30) mmol/L Anion Gap 12.6 (5-15) MEQ/L BUN 28 H (9-20) mg/dL Creatinine 1.35 H (0.66-1.25) mg/dL Estimated GFR 53.1 ML/MIN Glucose 169 H (74-106) mg/dL Calcium 8.3 L (8.4-10.2) mg/dL Magnesium 1.8 (1.6-2.3) mg/dL Total Bilirubin 0.60 (0.2-1.3) mg/dL AST 25 (17-59) U/L ALT 25 (0-50) U/L Alkaline Phosphatase 78 (38-126) U/L NT-Pro-B Natriuret Pep 1050 (<300) pg/mL Serum Total Protein 7.0 (6.3-8.2) g/dL Albumin 4.1 (3.5-5.0) g/dL - Progress Progress: unchanged Progress Note: 06/24/23 16:43 This patient's medical issue is 1 of moderate to high complexity. The level of complexity and the workup performed is based on review of the patient's past medical history, review of the patient's medication list, review of the patient's drug allergy list, history present illness and physical findings on examination. This patient's workup includes placement of intravenous line, CBC CMP, COVID swabs. We will also provide the patient with 10 mg subcutaneously of vitamin K. I will contact the hospitalist regarding placing this patient in observation. I reviewed the chest x-ray results that were interpreted by the radiologist. I will also provide the patient with Rocephin 1 g intravenously. 06/24/23 17:46 I interpreted the patient's laboratory data results. The patient's hemoglobin is 12.8. The remainder of the laboratory results, other than the PT/INR, show no additional acute, emergent findings. I did speak with Dr. Sharpe, the telehospitalist. We discussed but the plan was pending the patient's hemoglobin level. The patient's hemoglobin level is normal. We will place the patient in observation if okay with her. We have placed an additional call to the telehospitalist. 06/24/23 18:[address] Sharpe, the telehospitalist. Patient white count was normal. COVID studies are not yet back. She does except the patient to be placed in ob servation. Counseled pt/family regarding: lab results, diagnosis Medical Desision Making - Discussion of managment Care discussed with:: hospitalist - Diagnostic Testing Diagnostic test were ordered, analyzed, and reviewed by me: Yes Radiological Interpretation: Reviewed by me, Teleradiologist Report - Risk of complications The pt has a high risk of morbidity or mortality based on: Decision regarding ho spitilization or escalation of hosp level of care - Departure Departure Disposition: Observation Clinical Impression: Left pulmonary infiltrate on CXR, Anticoagulation excessive Condition: Stable Critical Care Time: No Referrals: BRADEN BEATTY [Primary Care Provider] - Follow up/PCP as directed
[2023-06-24] MEDS ORDERED: ROCEPHIN 1 GM / 100 ML NaCl 1 GM/100 ML IVPB IV ONE (17:00)
[2023-06-24] MEDS ORDERED: Vitamin K 10 MG/ML ONE (17:00)
[2023-06-24] MEDS: Vitamin K 10 MG/ML SQ ONE (17:10)
[2023-06-24] MEDS: ROCEPHIN 1 GM / 100 ML NaCl 1 GM/100 ML IVPB IV ONE (17:10)
[2023-06-24 17:19] LABS: Absolute Neutrophil Ct (ANC) 3.93 x10^3/uL (1.4-6.9); BASOPHIL % 0.8 % (0.0-0.4); Basophil (Absolute #) 0.05 x10^3/uL (0-0.4); Eosinophil % 5.2 % (0.00-5.0); Eosinophil (Absolute #) 0.31 x10^3/uL (0-0.5); Hematocrit 39.9 % (42-50); Hemoglobin 12.8 g/dL (12.5-18.0); IMMATURE GRAN # 0.02 x10^3u/L (0.00-0.03); IMMATURE GRAN % 0.3 % (0.00-0.4); Lymphocytes % 18.3 % (24.0-44.0); Mean Cell Volume 99.5 fL (78-100); Mean Corpuscular Hemoglobin 31.9 pg (26-32); Mean Corpuscular Hgb Concent. 32.1 g/dL (32-36); Mean Platelet Volume 9.7 fL (7.5-11.0); Neutrophil % 65.4 % (36.0-66.0); Platelet Count 197 x10^3/uL (150-450); Red Blood Count 4.01 x10^6/uL (4.1-5.6); Red Cell Distribution Width 14.7 % (11.5-14.0)
[2023-06-24 17:34] LABS: ALBUMIN 4.1 g/dL (3.5-5.0); ANION GAP 12.6 MEQ/L (5-15); BILIRUBIN,TOTAL 0.6 mg/dL (0.2-1.3); Calcium 8.3 mg/dL (8.4-10.2); Creatinine 1 1.35 mg/dL (0.66-1.25); EST GLOMERULAR FILTRATION RATE 53.1 ML/MIN; MAGNESIUM 1.8 mg/dL (1.6-2.3); Potassium 4.6 mmol/L (3.5-5.1)
[2023-06-24 18:04] LABS: INFLUENZA A NEGATIVE (NEGATIVE); INFLUENZA B NEGATIVE (NEGATIVE); RESPIRATORY SYNCTIAL VIRUS NEGATIVE (NEGATIVE); SARS-CoV-2 Xpert Express NEGATIVE (NEGATIVE)
[2023-06-24] MEDS ORDERED: HUMULIN R SQ PRN (18:46)
[2023-06-24] MEDS: ROCEPHIN 1 GM / 100 ML NaCl 1 GM/100 ML IVPB IV SCH (21:11)
[2023-06-24] MEDS: Sodium Chloride 0.9% 1000 ML 1,000 ML IV SCH (21:20)
--- NOTE | 2023-06-24 21:53 | PCM.HP ---
History of Present Illness - Chief Complaint Chief Complaint: Elevated INR 7.7 History of Present Illness: is a 82 year old male with DM2, stroke, PVD and who is on warfarin who presents with elevated INR of 7.7 and with CXR showing a mild left lower lobe opacity. No fevers, vomiting, headaches, shortness of breath. No bleeding. No abdominal pain. He takes his warfarin as prescribed. - Review of Systems Constitutional: No Fever, No Chills Eyes: No Symptoms Ears, Nose, & Throat: No Symptoms Respiratory: No Cough, No Short Of Breath Cardiac: No Chest Pain, No Edema, No Syncope Abdominal/Gastrointestinal: No Abdominal Pain, No Nausea, No Vomiting, No Diarrhea Genitourinary Symptoms: No Dysuria Musculoskeletal: No Back Pain, No Neck Pain Skin: No Rash Neurological: No Dizziness, No Focal Weakness, No Sensory Changes Psychological: No Symptoms Endocrine: No Symptoms Hematologic/Lymphatic: No Symptoms Immunological/Allergic: No Symptoms Medications & Allergies Home Medications: Home Medication List Atorvastatin Calcium 80 mg PO HS 12/31/22 [History Confirmed 06/24/23] Famotidine 20 mg PO BID 12/31/22 [History Confirmed 06/24/23] Fluoxetine HCl 20 mg [Prozac 20 MG] 20 mg PO BID 12/31/22 [History Confirmed 06/24/23] Gabapentin 300 mg PO 0800,1200 12/31/22 [History Confirmed 06/24/23] Glipizide [Glipizide ER] 10 mg PO BID 12/31/22 [History Confirmed 06/24/23] Metformin HCl 500 mg [Glucophage 500 MG] 1,000 mg PO BIDWMEALS 12/31/22 [History Confirmed 06/24/23] Pearce-3/Dha/Epa/Fish Oil [Fish Oil 1,400 mg Softgel] 1 cap PO BID 12/31/22 [History Confirmed 06/24/23] Omeprazole 40 mg PO DAILY 12/31/22 [History Confirmed 06/24/23] Tamsulosin HCl 0.4 mg [Flomax 0.4 MG] 0.4 mg PO BID 12/31/22 [History Confirmed 06/24/23] Warfarin Sodium 0 mg PO UD 12/31/22 [History Confirmed 06/24/23] Gabapentin [Neurontin ] 600 mg PO HS 06/24/23 [History Confirmed 06/24/23] Metoprolol Tartrate 50 mg [Lopressor 50 MG] 50 mg PO BID 06/24/23 [History Confirmed 06/24/23] Pioglitazone 30 mg [Actos 30 MG] 30 mg PO DAILY 06/24/23 [History Confirm ed 06/24/23] Warfarin Sodium 0 mg PO UD 06/24/23 [History Confirmed 06/24/23] Allergies/Adverse Reactions: Allergies Allergy/AdvReac Type Severity Reaction Status Date / Time No Known Drug Allergies Allergy Verified 06/24/23 15:57 - Past Medical History Past Medical History: Yes Neurological History: Stroke ENT History: No Pertinent History Cardiac History: No Pertinent History, High Cholesterol Respiratory History: No Pertinent History Endocrine Medical History: Diabetes Type II Musculoskelatal History: No Pertinent History GI Medical History: No Pertinent History History: No Pertinent History Pyscho-Social History: No Pertinent History Male Reproductive Disorders: Prostate Problems Comment: carotid artery blockage, poor circulation to bilat lower extremities - Past Surgical History Past Surgical History: Yes (stint left carotid) Neuro Surgical History: No Pertinent History Cardiac History: No Pertinent History Respiratory Surgery: No Pertinent History GI Surgical History: No Pertinent History Genitourinary Surgical Hx: No Pertinent History Musculskeletal Surgical Hx: No Pertinent History Male Surgical History: No Pertinent History Other Surgical History: stents in bilat legs due to poor circulation - Social History Smoking Status: Former smoker How long have you smoked: 50 yrs Exposure to second hand smoke: No Alcohol: Rarely Drug Use: none - Physical Exam Vital Signs: Vital Signs - 24 hr Temp Pulse Resp BP BP Pulse Ox 06/24/23 20:15 97.7 F 56 L 18 170/80 06/24/23 18:00 56 L 13 164/71 95 06/24/23 17:30 59 L 13 153/69 96 06/24/23 17:20 56 L 11 L 96 06/24/23 17:10 56 L 18 97 06/24/23 17:03 57 L 16 96 06/24/23 16:34 92 L 06/24/23 16:30 58 L 14 133/54 92 L 06/24/23 15:41 97.1 F 58 L 18 144/53 98 General Appearance: no apparent distress, alert Neurologic Exam: alert, oriented x 3, cooperative, normal mood/affect, nml cerebellar function, nml station & gait, sensation nml, No motor deficits Eye Exam: PERRL/EOMI, eyes nml inspection Ears, Nose, Throat Exam: normal ENT inspection, TMs normal, pharynx normal, moist mucous membranes Neck Exam: normal inspection, non-tender, supple, full range of motion Respiratory Exam: normal breath sounds, lungs clear, No respiratory distress Cardiovascular Exam: regular rate/rhythm, normal heart sounds, normal peripheral pulses Gastrointestinal/Abdomen Exam: soft, normal bowel sounds, No tenderness, No mass Back Exam: normal inspection, normal range of motion, No CVA tenderness, No vertebral tenderness Extremity Exam: normal inspection, normal range of motion, pelvis stable Skin Exam: normal color, warm, dry, No rash Lymphatic Exam: No adenopathy Results - Labs Lab/Micro Results: Lab Results-Last 24 Hours 06/24/23 06/24/23 06/24/23 Range/Units 16:50 16:50 16:50 WBC 6.0 (4.0-10.5) x10^3/uL RBC 4.01 L (4.1-5.6) x10^6/uL Hgb 12.8 (12.5-18.0) g/dL Hct 39.9 L (42-50) % MCV 99.5 (78-100) fL MCH 31.9 (26-32) pg MCHC 32.1 (32-36) g/dL RDW 14.7 H (11.5-14.0) % Plt Count 197 (150-450) x10^3/uL MPV 9.7 (7.5-11.0) fL Gran % 65.4 (36.0-66.0) % Immature Gran % (Auto) 0.3 (0.00-0.4) % Nucleat RBC Rel Count 0.0 (0.00-0.1) % Eos # (Auto) 0.31 (0-0.5) x10^3/uL Immature Gran # (Auto) 0.02 (0.00-0.03) x10^3u/L Absolute Lymphs (auto) 1.10 (1.0-4.6) x10^3/uL Absolute Monos (auto) 0.60 (0.0-1.3) x10^3/uL Absolute Nucleated RBC 0.00 (0.00-0.01) x10^3u/L Lymphocytes % 18.3 L (24.0-44.0) % Monocytes % 10.0 (0.0-12.0) % Eosinophils % 5.2 H (0.00-5.0) % Basophils % 0.8 (0.0-0.4) % Absolute Granulocytes 3.93 (1.4-6.9) x10^3/uL Basophils # 0.05 (0-0.4) x10^3/uL Sodium 141 (137-145) mmol/L Potassium 4.6 (3.5-5.1) mmol/L Chloride 107 (98-107) mmol/L Carbon Dioxide 27 (22-30) mmol/L Anion Gap 12.6 (5-15) MEQ/L BUN 28 H (9-20) mg/dL Creatinine 1.35 H (0.66-1.25) mg/dL Estimated GFR 53.1 ML/MIN Glucose 169 H (74-106) mg/dL Calcium 8.3 L (8.4-10.2) mg/dL Magnesium 1.8 (1.6-2.3) mg/dL Total Bilirubin 0.60 (0.2-1.3) mg/dL AST 25 (17-59) U/L ALT 25 (0-50) U/L Alkaline Phosphatase 78 (38-126) U/L NT-Pro-B Natriuret Pep 1050 (<300) pg/mL Serum Total Protein 7.0 (6.3-8.2) g/dL Albumin 4.1 (3.5-5.0) g/dL Influenza Type A Ag (NEGATIVE) Influenza Type B Ag (NEGATIVE) RSV (PCR) (NEGATIVE) SARS-CoV-2 (PCR) (NEGATIVE) 06/24/23 Range/Units 17:08 WBC (4.0-10.5) x10^3/uL RBC (4.1-5.6) x10^6/uL Hgb (12.5-18.0) g/dL Hct (42-50) % MCV (78-100) fL MCH (26-32) pg MCHC (32-36) g/dL RDW (11.5-14.0) % Plt Count (150-450) x10^3/uL MPV (7.5-11.0) fL Gran % (36.0-66.0) % Immature Gran % (Auto) (0.00-0.4) % Nucleat RBC Rel Count (0.00-0.1) % Eos # (Auto) (0-0.5) x10^3/uL Immature Gran # (Auto) (0.00-0.03) x10^3u/L Absolute Lymphs (auto) (1.0-4.6) x10^3/uL Absolute Monos (auto) (0.0-1.3) x10^3/uL Absolute Nucleated RBC (0.00-0.01) x10^3u/L Lymphocytes % (24.0-44.0) % Monocytes % (0.0-12.0) % Eosinophils % (0.00-5.0) % Basophils % (0.0-0.4) % Absolute Granulocytes (1.4-6.9) x10^3/uL Basophils # (0-0.4) x10^3/uL Sodium (137-145) mmol/L Potassium (3.5-5.1) mmol/L Chloride (98-107) mmol/L Carbon Dioxide (22-30) mmol/L Anion Gap (5-15) MEQ/L BUN (9-20) mg/dL Creatinine (0.66-1.25) mg/dL Estimated GFR ML/MIN Glucose (74-106) mg/dL Calcium (8.4-10.2) mg/dL Magnesium (1.6-2.3) mg/dL Total Bilirubin (0.2-1.3) mg/dL AST (17-59) U/L ALT (0-50) U/L Alkaline Phosphatase (38-126) U/L NT-Pro-B Natriuret Pep (<300) pg/mL Serum Total Protein (6.3-8.2) g/dL Albumin (3.5-5.0) g/dL Influenza Type A Ag NEGATIVE (NEGATIVE) Influenza Type B Ag NEGATIVE (NEGATIVE) RSV (PCR) NEGATIVE (NEGATIVE) SARS-CoV-2 (PCR) NEGATIVE (NEGATIVE) Assessment/Plan (1) Elevated INR (international normalized ratio) Current Visit: No Status: Acute Assessment & Plan: 1. Hold coumadin 2. Monitor INR and restart when level is 2-3 3. No signs of PNA - will not give abx 4. No signs of bleeding Code(s): R79.1 - ABNORMAL COAGULATION PROFILE Telemedicine Encounter - Telemedicine Encounter Telemedicine Encounter: The entirety of this encounter was performed via Telemedicine"
[2023-06-24] MEDS ORDERED: NON-FORMULARY ITEM (Atorvastatin Calcium [Atorvastatin Calcium] 80 MG Tablet) PO SCH (22:00)
[2023-06-24] MEDS: [UNRECOGNIZED DRUG - OTHER] PO SCH (23:21)
[2023-06-24] MEDS: EPA PO SCH (23:21)
[2023-06-24] MEDS: DHA PO SCH (23:21)
[2023-06-24] MEDS: OMEGA PO SCH (23:21)
[2023-06-24] MEDS: FISH OIL PO SCH (23:21)
[2023-06-24] MEDS ORDERED: Glucotrol 5 MG ONE (23:33)
[2023-06-24] MEDS ORDERED: ZOCOR 20MG ONE (23:35)
[2023-06-24] MEDS: Lopressor 50 MG PO SCH (23:37)
[2023-06-24] MEDS: Prozac 20 MG PO SCH (23:37)
[2023-06-24] MEDS: Pepcid 20 MG PO SCH (23:38)
[2023-06-24] MEDS: Flomax 0.4 MG PO SCH (23:38)
[2023-06-24] MEDS: NEURONTIN PO SCH (23:39)
[2023-06-24] MEDS: NON-FORMULARY ITEM (Glipizide [Glipizide Er] 5 MG Tab.Er.24) PO SCH (23:39)
[2023-06-25] MEDS: ZOCOR 20MG PO SCH (00:06)
[2023-06-25 04:33] LABS: Absolute Neutrophil Ct (ANC) 4.18 x10^3/uL (1.4-6.9); BASOPHIL % 0.6 % (0.0-0.4); Basophil (Absolute #) 0.04 x10^3/uL (0-0.4); Eosinophil % 6.7 % (0.00-5.0); Eosinophil (Absolute #) 0.45 x10^3/uL (0-0.5); Hemoglobin 12.5 g/dL (12.5-18.0); IMMATURE GRAN # 0.02 x10^3u/L (0.00-0.03); IMMATURE GRAN % 0.3 % (0.00-0.4); Lymphocyte (Absolute #) 1.37 x10^3/uL (1.0-4.6); Lymphocytes % 20.4 % (24.0-44.0); Mean Cell Volume 98.2 fL (78-100); Mean Corpuscular Hemoglobin 32.3 pg (26-32); Mean Corpuscular Hgb Concent. 32.9 g/dL (32-36); Mean Platelet Volume 9.4 fL (7.5-11.0); Monocyte (Absolute #) 0.66 x10^3/uL (0.0-1.3); Monocytes % 9.8 % (0.0-12.0); Neutrophil % 62.2 % (36.0-66.0); Platelet Count 179 x10^3/uL (150-450); Red Blood Count 3.87 x10^6/uL (4.1-5.6); Red Cell Distribution Width 14.7 % (11.5-14.0); White Blood Count 6.7 x10^3/uL (4.0-10.5)
[2023-06-25 04:58] LABS: ALBUMIN 3.8 g/dL (3.5-5.0); ANION GAP 11.3 MEQ/L (5-15); BILIRUBIN,TOTAL 0.5 mg/dL (0.2-1.3); Calcium 8.1 mg/dL (8.4-10.2); Creatinine 1 1.19 mg/dL (0.66-1.25); EST GLOMERULAR FILTRATION RATE 61.8 ML/MIN; Potassium 4.2 mmol/L (3.5-5.1); Total Protein 6.7 g/dL (6.3-8.2)
[2023-06-25 05:04] LABS: PROTIME 68.6 SECONDS (9.4-12.5)
[2023-06-25 05:07] LABS: INR 7.16 (0.8-3.0)
--- NOTE | 2023-06-25 05:51 | PCM.NOTE ---
Date and Time: 06/25/23 0544 Subjective Assessment: Mr. Restrepo is an 82 year old male with a pmhx of DMII, GERD, HLD, and stroke, CAD (stent placed in left carotid), Bilateral leg stents, on coumadin, admitted with supratherapeutic INR and pneumonia in the [facility] on OP CXR 06/24/23. INR 7.70 on arrival. Patient given Vitamin K as well as ceftriaxone in ED. Lab findings also remarkable for ROSE (baseline creat around 1.2). 06/25/23: Met with patient bedside. No overnight events noted. No complaints this morning. Patient denies any active bleeding. Reports he gets his INR check weekly with at [facility]. Denies any complaints of cough, shortness of breath, fever, or recent sick contacts. Discussed lab work, INR is downtrending but still elevated at 7.16<7.70. Plan to continue to hold warfarin. <MITA RAMIREZ - Last Filed: 06/25/23 12:21> Date and Time: 06/25/232019 <BENJA REMY - Last Filed: 06/25/23 20:21> - Review of Systems Constitutional: No Symptoms Eyes: No Symptoms Ears, Nose, & Throat: No Symptoms Respiratory: No Symptoms Cardiac: No Symptoms Abdominal/Gastrointestinal: No Symptoms Genitourinary Symptoms: No Symptoms Musculoskeletal: No Symptoms Skin: No Symptoms Neurological: No Symptoms Psychological: No Symptoms Endocrine: No Symptoms Hematologic/Lymphatic: No Symptoms Immunological/Allergic: No Symptoms <MITA RAMIREZ - Last Filed: 06/25/23 12:21> Objective Exam General Appearance: no apparent distress Neurologic Exam: alert, oriented x 3, cooperative Eye Exam: PERRL Ears, Nose, Throat Exam: normal ENT inspection Neck Exam: normal inspection Respiratory Exam: normal breath sounds, lungs clear Cardiovascular Exam: regular rate/rhythm, normal heart sounds Gastrointestinal/Abdomen Exam: soft, normal bowel sounds Extremity Exam: swelling (BLE +1) Male Genitalia Exam: deferred Rectal Exam: deferred <MITA RAMIREZ - Last Filed: 06/25/23 12:21> OBJECTIVE DATA Vital Signs: Vital Signs - 24 hr Temp Pulse Resp BP BP Pulse Ox 06/25/23 04:00 97.9 F 59 L 18 136/65 93 L 06/25/23 00:20 97.7 F 57 L 16 176/80 92 L 06/24/23 20:15 97.7 F 56 L 18 170/80 06/24/23 18:00 56 L 13 164/71 95 06/24/23 17:30 59 L 13 153/69 96 06/24/23 17:20 56 L 11 L 96 06/24/23 17:10 56 L 18 97 06/24/23 17:03 57 L 16 96 06/24/23 16:34 92 L 06/24/23 16:30 58 L 14 133/54 92 L 06/24/23 15:41 97.1 F 58 L 18 144/53 98 Pain Assessment - Last Documented Pain Intensity 0 Intake and Output: Intake & Output 06/22/23 06/23/23 06/24/23 06/25/23 11:59 11:59 11:59 11:59 Intake Total 240 Balance 240 Weight 120.4 kg Lab Results: Lab Results-Last 24 Hours 06/24/23 06/24/23 06/24/23 Range/Units 16:50 16:50 16:50 WBC 6.0 (4.0-10.5) x10^3/uL RBC 4.01 L (4.1-5.6) x10^6/uL Hgb 12.8 (12.5-18.0) g/dL Hct 39.9 L (42-50) % MCV 99.5 (78-100) fL MCH 31.9 (26-32) pg MCHC 32.1 (32-36) g/dL RDW 14.7 H (11.5-14.0) % Plt Count 197 (150-450) x10^3/uL MPV 9.7 (7.5-11.0) fL Gran % 65.4 (36.0-66.0) % Immature Gran % (Auto) 0.3 (0.00-0.4) % Nucleat RBC Rel Count 0.0 (0.00-0.1) % Eos # (Auto) 0.31 (0-0.5) x10^3/uL Immature Gran # (Auto) 0.02 (0.00-0.03) x10^3u/L Absolute Lymphs (auto) 1.10 (1.0-4.6) x10^3/uL Absolute Monos (auto) 0.60 (0.0-1.3) x10^3/uL Absolute Nucleated RBC 0.00 (0.00-0.01) x10^3u/L Lymphocytes % 18.3 L (24.0-44.0) % Monocytes % 10.0 (0.0-12.0) % Eosinophils % 5.2 H (0.00-5.0) % Basophils % 0.8 (0.0-0.4) % Absolute Granulocytes 3.93 (1.4-6.9) x10^3/uL Basophils # 0.05 (0-0.4) x10^3/uL PT (9.4-12.5) SECONDS INR (0.8-3.0) Sodium 141 (137-145) mmol/L Potassium 4.6 (3.5-5.1) mmol/L Chloride 107 (98-107) mmol/L Carbon Dioxide 27 (22-30) mmol/L Anion Gap 12.6 (5-15) MEQ/L BUN 28 H (9-20) mg/dL Creatinine 1.35 H (0.66-1.25) mg/dL Estimated GFR 53.1 ML/MIN Glucose 169 H (74-106) mg/dL POC Glucometer (74 to 106) mg/dL Calcium 8.3 L (8.4-10.2) mg/dL Magnesium 1.8 (1.6-2.3) mg/dL Total Bilirubin 0.60 (0.2-1.3) mg/dL AST 25 (17-59) U/L ALT 25 (0-50) U/L Alkaline Phosphatase 78 (38-126) U/L NT-Pro-B Natriuret Pep 1050 (<300) pg/mL Serum Total Protein 7.0 (6.3-8.2) g/dL Albumin 4.1 (3.5-5.0) g/dL Influenza Type A Ag (NEGATIVE) Influenza Type B Ag (NEGATIVE) RSV (PCR) (NEGATIVE) SARS-CoV-2 (PCR) (NEGATIVE) 06/24/23 06/25/23 06/25/23 Range/Units 17:08 01:05 04:28 WBC 6.7 (4.0-10.5) x10^3/uL RBC 3.87 L (4.1-5.6) x10^6/uL Hgb 12.5 (12.5-18.0) g/dL Hct 38.0 L (42-50) % MCV 98.2 (78-100) fL MCH 32.3 H (26-32) pg MCHC 32.9 (32-36) g/dL RDW 14.7 H (11.5-14.0) % Plt Count 179 (150-450) x10^3/uL MPV 9.4 (7.5-11.0) fL Gran % 62.2 (36.0-66.0) % Immature Gran % (Auto) 0.3 (0.00-0.4) % Nucleat RBC Rel Count 0.0 (0.00-0.1) % Eos # (Auto) 0.45 (0-0.5) x10^3/uL Immature Gran # (Auto) 0.02 (0.00-0.03) x10^3u/L Absolute Lymphs (auto) 1.37 (1.0-4.6) x10^3/uL Absolute Monos (auto) 0.66 (0.0-1.3) x10^3/uL Absolute Nucleated RBC 0.00 (0.00-0.01) x10^3u/L Lymphocytes % 20.4 L (24.0-44.0) % Monocytes % 9.8 (0.0-12.0) % Eosinophils % 6.7 H (0.00-5.0) % Basophils % 0.6 (0.0-0.4) % Absolute Granulocytes 4.18 (1.4-6.9) x10^3/uL Basophils # 0.04 (0-0.4) x10^3/uL PT (9.4-12.5) SECONDS INR (0.8-3.0) Sodium (137-145) mmol/L Potassium (3.5-5.1) mmol/L Chloride (98-107) mmol/L Carbon Dioxide (22-30) mmol/L Anion Gap (5-15) MEQ/L BUN (9-20) mg/dL Creatinine (0.66-1.25) mg/dL Estimated GFR ML/MIN Glucose (74-106) mg/dL POC Glucometer 124 H (74 to 106) mg/dL Calcium (8.4-10.2) mg/dL Magnesium (1.6-2.3) mg/dL Total Bilirubin (0.2-1.3) mg/dL AST (17-59) U/L ALT (0-50) U/L Alkaline Phosphatase (38-126) U/L NT-Pro-B Natriuret Pep (<300) pg/mL Serum Total Protein (6.3-8.2) g/dL Albumin (3.5-5.0) g/dL Influenza Type A Ag NEGATIVE (NEGATIVE) Influenza Type B Ag NEGATIVE (NEGATIVE) RSV (PCR) NEGATIVE (NEGATIVE) SARS-CoV-2 (PCR) NEGATIVE (NEGATIVE) 06/25/23 06/25/23 Range/Units 04:28 04:28 WBC (4.0-10.5) x10^3/uL RBC (4.1-5.6) x10^6/uL Hgb (12.5-18.0) g/dL Hct (42-50) % MCV (78-100) fL MCH (26-32) pg MCHC (32-36) g/dL RDW (11.5-14.0) % Plt Count (150-450) x10^3/uL MPV (7.5-11.0) fL Gran % (36.0-66.0) % Immature Gran % (Auto) (0.00-0.4) % Nucleat RBC Rel Count (0.00-0.1) % Eos # (Auto) (0-0.5) x10^3/uL Immature Gran # (Auto) (0.00-0.03) x10^3u/L Absolute Lymphs (auto) (1.0-4.6) x10^3/uL Absolute Monos (auto) (0.0-1.3) x10^3/uL Absolute Nucleated RBC (0.00-0.01) x10^3u/L Lymphocytes % (24.0-44.0) % Monocytes % (0.0-12.0) % Eosinophils % (0.00-5.0) % Basophils % (0.0-0.4) % Absolute Granulocytes (1.4-6.9) x10^3/uL Basophils # (0-0.4) x10^3/uL PT 68.6 H (9.4-12.5) SECONDS INR 7.16 H* (0.8-3.0) Sodium 139 (137-145) mmol/L Potassium 4.2 (3.5-5.1) mmol/L Chloride 109 H (98-107) mmol/L Carbon Dioxide 24 (22-30) mmol/L Anion Gap 11.3 (5-15) MEQ/L BUN 24 H (9-20) mg/dL Creatinine 1.19 (0.66-1.25) mg/dL Estimated GFR 61.8 ML/MIN Glucose 125 H (74-106) mg/dL POC Glucometer (74 to 106) mg/dL Calcium 8.1 L (8.4-10.2) mg/dL Magnesium (1.6-2.3) mg/dL Total Bilirubin 0.50 (0.2-1.3) mg/dL AST 24 (17-59) U/L ALT 24 (0-50) U/L Alkaline Phosphatase 68 (38-126) U/L NT-Pro-B Natriuret Pep (<300) pg/mL Serum Total Protein 6.7 (6.3-8.2) g/dL Albumin 3.8 (3.5-5.0) g/dL Influenza Type A Ag (NEGATIVE) Influenza Type B Ag (NEGATIVE) RSV (PCR) (NEGATIVE) SARS-CoV-2 (PCR) (NEGATIVE) <MITA RAMIREZ - Last Filed: 06/25/23 12:21> Vital Signs: Vital Signs - 24 hr Temp Pulse Resp BP Pulse Ox 06/25/23 19:47 97.6 F 52 L 19 131/62 95 06/25/23 16:00 97.2 F 119 H 18 150/70 99 06/25/23 11:10 97.4 F 98 H 16 153/67 94 L 06/25/23 07:05 97.5 F 60 16 161/74 92 L 06/25/23 04:00 97.9 F 59 L 18 136/65 93 L 06/25/23 00:20 97.7 F 57 L 16 176/80 92 L Pain Assessment - Last Documented Pain Intensity 0 Intake and Output: Intake & Output 06/23/23 06/24/23 06/25/23 06/26/23 11:59 11:59 11:59 11:59 Intake Total 748 1647 Balance 480 1647 Weight 120.4 kg Lab Results: Lab Results-Last 24 Hours 06/25/23 06/25/23 06/25/23 Range/Units 01:05 04:28 04:28 WBC 6.7 (4.0-10.5) x10^3/uL RBC 3.87 L (4.1-5.6) x10^6/uL Hgb 12.5 (12.5-18.0) g/dL Hct 38.0 L (42-50) % MCV 98.2 (78-100) fL MCH 32.3 H (26-32) pg MCHC 32.9 (32-36) g/dL RDW 14.7 H (11.5-14.0) % Plt Count 179 (150-450) x10^3/uL MPV 9.4 (7.5-11.0) fL Gran % 62.2 (36.0-66.0) % Immature Gran % (Auto) 0.3 (0.00-0.4) % Nucleat RBC Rel Count 0.0 (0.00-0.1) % Eos # (Auto) 0.45 (0-0.5) x10^3/uL Immature Gran # (Auto) 0.02 (0.00-0.03) x10^3u/L Absolute Lymphs (auto) 1.37 (1.0-4.6) x10^3/uL Absolute Monos (auto) 0.66 (0.0-1.3) x10^3/uL Absolute Nucleated RBC 0.00 (0.00-0.01) x10^3u/L Lymphocytes % 20.4 L (24.0-44.0) % Monocytes % 9.8 (0.0-12.0) % Eosinophils % 6.7 H (0.00-5.0) % Basophils % 0.6 (0.0-0.4) % Absolute Granulocytes 4.18 (1.4-6.9) x10^3/uL Basophils # 0.04 (0-0.4) x10^3/uL PT (9.4-12.5) SECONDS INR (0.8-3.0) Sodium 139 (137-145) mmol/L Potassium 4.2 (3.5-5.1) mmol/L Chloride 109 H (98-107) mmol/L Carbon Dioxide 24 (22-30) mmol/L Anion Gap 11.3 (5-15) MEQ/L BUN 24 H (9-20) mg/dL Creatinine 1.19 (0.66-1.25) mg/dL Estimated GFR 61.8 ML/MIN Glucose 125 H (74-106) mg/dL POC Glucometer 124 H (74 to 106) mg/dL Hemoglobin A1c (4.5-6.0) % Calcium 8.1 L (8.4-10.2) mg/dL Total Bilirubin 0.50 (0.2-1.3) mg/dL AST 24 (17-59) U/L ALT 24 (0-50) U/L Alkaline Phosphatase 68 (38-126) U/L Serum Total Protein 6.7 (6.3-8.2) g/dL Albumin 3.8 (3.5-5.0) g/dL 06/25/23 06/25/23 06/25/23 Range/Units 04:28 04:28 06:50 WBC (4.0-10.5) x10^3/uL RBC (4.1-5.6) x10^6/uL Hgb (12.5-18.0) g/dL Hct (42-50) % MCV (78-100) fL MCH (26-32) pg MCHC (32-36) g/dL RDW (11.5-14.0) % Plt Count (150-450) x10^3/uL MPV (7.5-11.0) fL Gran % (36.0-66.0) % Immature Gran % (Auto) (0.00-0.4) % Nucleat RBC Rel Count (0.00-0.1) % Eos # (Auto) (0-0.5) x10^3/uL Immature Gran # (Auto) (0.00-0.03) x10^3u/L Absolute Lymphs (auto) (1.0-4.6) x10^3/uL Absolute Monos (auto) (0.0-1.3) x10^3/uL Absolute Nucleated RBC (0.00-0.01) x10^3u/L Lymphocytes % (24.0-44.0) % Monocytes % (0.0-12.0) % Eosinophils % (0.00-5.0) % Basophils % (0.0-0.4) % Absolute Granulocytes (1.4-6.9) x10^3/uL Basophils # (0-0.4) x10^3/uL PT 68.6 H (9.4-12.5) SECONDS INR 7.16 H* (0.8-3.0) Sodium (137-145) mmol/L Potassium (3.5-5.1) mmol/L Chloride (98-107) mmol/L Carbon Dioxide (22-30) mmol/L Anion Gap (5-15) MEQ/L BUN (9-20) mg/dL Creatinine (0.66-1.25) mg/dL Estimated GFR ML/MIN Glucose (74-106) mg/dL POC Glucometer 134 H (74 to 106) mg/dL Hemoglobin A1c 7.48 H (4.5-6.0) % Calcium (8.4-10.2) mg/dL Total Bilirubin (0.2-1.3) mg/dL AST (17-59) U/L ALT (0-50) U/L Alkaline Phosphatase (38-126) U/L Serum Total Protein (6.3-8.2) g/dL Albumin (3.5-5.0) g/dL 06/25/23 06/25/23 Range/Units 11:05 15:57 WBC (4.0-10.5) x10^3/uL RBC (4.1-5.6) x10^6/uL Hgb (12.5-18.0) g/dL Hct (42-50) % MCV (78-100) fL MCH (26-32) pg MCHC (32-36) g/dL RDW (11.5-14.0) % Plt Count (150-450) x10^3/uL MPV (7.5-11.0) fL Gran % (36.0-66.0) % Immature Gran % (Auto) (0.00-0.4) % Nucleat RBC Rel Count (0.00-0.1) % Eos # (Auto) (0-0.5) x10^3/uL Immature Gran # (Auto) (0.00-0.03) x10^3u/L Absolute Lymphs (auto) (1.0-4.6) x10^3/uL Absolute Monos (auto) (0.0-1.3) x10^3/uL Absolute Nucleated RBC (0.00-0.01) x10^3u/L Lymphocytes % (24.0-44.0) % Monocytes % (0.0-12.0) % Eosinophils % (0.00-5.0) % Basophils % (0.0-0.4) % Absolute Granulocytes (1.4-6.9) x10^3/uL Basophils # (0-0.4) x10^3/uL PT (9.4-12.5) SECONDS INR (0.8-3.0) Sodium (137-145) mmol/L Potassium (3.5-5.1) mmol/L Chloride (98-107) mmol/L Carbon Dioxide (22-30) mmol/L Anion Gap (5-15) MEQ/L BUN (9-20) mg/dL Creatinine (0.66-1.25) mg/dL Estimated GFR ML/MIN Glucose (74-106) mg/dL POC Glucometer 168 H 138 H (74 to 106) mg/dL Hemoglobin A1c (4.5-6.0) % Calcium (8.4-10.2) mg/dL Total Bilirubin (0.2-1.3) mg/dL AST (17-59) U/L ALT (0-50) U/L Alkaline Phosphatase (38-126) U/L Serum Total Protein (6.3-8.2) g/dL Albumin (3.5-5.0) g/dL <BENJA REMY - Last Filed: 06/25/23 20:21> Assessment/Plan (1) Supratherapeutic INR Current Visit: Yes Status: Acute Assessment & Plan: -Pharmacy to dose coumadin, hold for now, INR at 7.16 Code(s): R79.1 - ABNORMAL COAGULATION PROFILE (2) ROSE (acute kidney injury) Current Visit: Yes Status: Acute Assessment & Plan: -Improving creat now wnl, BUN elevated at 24 -Monitor renal/lytes daily -Avoid GM/ARBS/NSAIDS Code(s): N17.9 - ACUTE KIDNEY FAILURE, UNSPECIFIED (3) Diabetes mellitus Current Visit: Yes Status: Acute Assessment & Plan: -SSI -ADA diet -AIC at 7.48 Code(s): E11.9 - TYPE 2 DIABETES MELLITUS WITHOUT COMPLICATIONS (4) Bilateral pneumonia Current Visit: No Status: Acute Assessment & Plan: -Supplemental oxygen with goal spo2 > 92% -Ceftriaxone/azith - hold for now, patient asymptomatic -CXR showing with mild left lower lobe interstitial alveolar opacities, possible pneumonia in right clinical setting. Code(s): J18.9 - PNEUMONIA, UNSPECIFIED ORGANISM <MITA RAMIREZ - Last Filed: 06/25/23 12:21> ANTWAN Encounter - ANTWAN Encounter Attestation ANTWAN Encounter Attestation: "IhKENDY Rudd andhavediscussed pertinent aspects of their care with Mita Meyer agree with the history, physical exam (any modifications based on my personal exam will be noted below), assessment, and plan as outlined in original note. Please see immediately below for my summary of findings and additional assessment and plan along with any meaningful corrections/explanations to the Subjective/Objective portions of the ANTWAN note will be noted." My portion of the encounter took place via telemedicine. 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 Will need to clarify. Since patient is elderly and INR is very high, will continue to monitor inpatient until its lower <BENJA REMY - Last Filed: 06/25/23 20:21>
[2023-06-25] MEDS ORDERED: ROCEPHIN 1 GM / 100 ML NaCl 1 GM/100 ML IVPB IV SCH ×2 (06:00→10:00)
[2023-06-25] MEDS ORDERED: Glucophage 500 MG PO SCH (08:00)
[2023-06-25] MEDS: NEURONTIN PO SCH (08:06)
[2023-06-25] MEDS ORDERED: Actos 30 MG PO SCH (10:00)
[2023-06-25] MEDS ORDERED: Zithromax 500 MG/ 250 ML NaCl Premix 500 MG/250 ML IVPB IV SCH (10:00)
[2023-06-25] MEDS ORDERED: NON-FORMULARY ITEM (Omeprazole [Omeprazole] 40 MG Capsule.Dr) PO SCH (10:00)
[2023-06-25] MEDS: FISH OIL 1,000 MG CAPSULE PO SCH (10:35)
[2023-06-25] MEDS: Protonix 40MG Tablet PO SCH (10:35)
[2023-06-25] MEDS: HUMALOG SQ PRN (12:02)
[2023-06-25] MEDS ORDERED: ZOCOR 20MG PO SCH (22:00)
[2023-06-26 04:49] LABS: INR 2.28 (0.8-3.0); PROTIME 23.5 SECONDS (9.4-12.5)
--- NOTE | 2023-06-26 05:25 | PCM.DS ---
Discharge Summary Date of Admission: 06/24/23 18:15 Date of Discharge: 06/26/23 Admitting Physician: BENJA REMY MD Primary Care Provider: BRADEN BEATTY <MITA RAMIREZ - Last Filed: 06/26/23 11:26> Date of Admission: 06/24/23 18:15 Admitting Physician: BENJA REMY MD Primary Care Provider: BRADEN BEATTY <BENJA REMY - Last Filed: 06/26/23 23:25> Allergies <MITA RAMIREZ - Last Filed: 06/26/23 11:26> <BENJA REMY - Last Filed: 06/26/23 23:25> Allergies No Known Drug Allergies Allergy (Verified 06/24/23 15:57) Hospital Summary - Hospital Course Hospital Course: Subjective Assessment: Mr. Restrepo is an 82 year old male with a pmhx of DMII, GERD, HLD, and stroke, CAD (stent placed in left carotid), Bilateral leg stents, on coumadin, admitted with supratherapeutic INR and pneumonia in the LLL on OP CXR 06/24/23. INR 7.70 on arrival. Patient given Vitamin K as well as ceftriaxone in ED. Lab findings also remarkable for ROSE (baseline creat around 1.2). INR has returned to therapeutic range. Patient has been set up with coumadin clinic for recheck, pharmacy has dosed coumadin to continue at 9mg. ROSE has resolved. Advised patient follow up with PCP and cardilology. Discharge Note New Diagnosis: Supratherapeutic INR/ROSE New Medications: coumadin dose change Follow Up: pcp/cards/coumadin clinic Latest Assessment & Plan Assessment/Plan (1) Supratherapeutic INR Current Visit: Yes Status: Acute Assessment & Plan: -Pharmacy to dose coumadin, hold for now, INR at 7.16 06/26/23 -Resolved, now in therapeutic range, patient set up with coumadin clinic at [facility] Code(s): R79.1 - ABNORMAL COAGULATION PROFILE (2) ROSE (acute kidney injury) Current Visit: Yes Status: Acute Assessment & Plan: -Improving creat now wnl, BUN elevated at 24 -Monitor renal/lytes daily -Avoid GM/ARBS/NSAIDS Code(s): N17.9 - ACUTE KIDNEY FAILURE, UNSPECIFIED (3) Diabetes mellitus Current Visit: Yes Status: Acute Assessment & Plan: -SSI -ADA diet -AIC at 7.48 Code(s): E11.9 - TYPE 2 DIABETES MELLITUS WITHOUT COMPLICATIONS (4) Bilateral pneumonia Current Visit: No Status: Acute Assessment & Plan: -Supplemental oxygen with goal spo2 > 92% -Ceftriaxone/azith -CXR showing with mild left lower lobe interstitial alveolar opacities, possible pneumonia in right clinical setting. Code(s): J18.9 - PNEUMONIA, UNSPECIFIED ORGANISM I spent 35 minutes [id number] with the patient on the day of discharge performing discharge exam, discussing hospital stay and discharge instructions with patient and caregivers, preparation of discharge records, prescriptions & referral forms and addressing any questions/concerns the patient had as documented above. - Vitals & Intake/Output Vital Signs: Vital Signs Temperature 97.5 F 06/26/23 03:34 Pulse Rate 52 L 06/26/23 03:42 Respiratory Rate 18 06/26/23 03:34 Blood Pressure 164/74 06/26/23 03:42 O2 Sat by Pulse Oximetry 96 06/26/23 03:34 Intake & Output: Intake & Output 06/23/23 06/24/23 06/25/23 06/26/23 11:59 11:59 11:59 11:59 Intake Total 480 2668 Balance 480 2668 Weight 120.4 kg - Lab Result Diagrams: 06/26/23 04:10 06/26/23 04:10 Lab Results-Last 24 Hrs: Lab Results-Last 24 Hours 06/25/23 06/25/23 06/25/23 Range/Units 04:28 06:50 11:05 PT (9.4-12.5) SECONDS INR (0.8-3.0) POC Glucometer 134 H 168 H (74 to 106) mg/dL Hemoglobin A1c 7.48 H (4.5-6.0) % 06/25/23 06/25/23 06/26/23 Range/Units 15:57 20:39 04:10 PT 23.5 H (9.4-12.5) SECONDS INR 2.28 D (0.8-3.0) POC Glucometer 138 H 109 H (74 to 106) mg/dL Hemoglobin A1c (4.5-6.0) % Micro Results-Entire Visit: Accuchecks Date 06/25/23 Date 06/25/23 Date 06/25/23 Date 06/25/23 - Procedures and Test Procedures and Tests throughout Hospitalization: Therapy Orders & Screens 06/24/23 20:45 ST Screen per Nursing Assess ONCE Comment: Protocol Order Physician Instructions: Greater than [address] Admission Screening Reason For Exam: Triggered on Admission Diagnosis: Elevated INR 7.7 CVA/Dyshpagia/Aphasia: No Cognitive Deficits: No Dehydration/Nutrition Deficit: No Reflux: No Oral-Motor Difficulties: No Pneumonia: Yes [facility] Resident: No Total Points: 5 <MITA RAMIREZ - Last Filed: 06/26/23 11:26> - Vitals & Intake/Output Vital Signs: Vital Signs Temperature 97.6 F 06/26/23 11:45 Pulse Rate 53 L 06/26/23 11:45 Respiratory Rate 16 06/26/23 11:45 Blood Pressure 140/68 06/26/23 11:45 O2 Sat by Pulse Oximetry 94 L 06/26/23 11:45 Intake & Output: Intake & Output 06/24/23 06/25/23 06/26/23 06/27/23 11:59 11:59 11:59 11:59 Intake Total 480 3248 360 Balance 480 3248 360 Weight 120.4 kg - Lab Result Diagrams: 06/26/23 04:10 06/26/23 04:10 Lab Results-Last 24 Hrs: Lab Results-Last 24 Hours 06/26/23 06/26/23 06/26/23 Range/Units 04:10 04:10 04:10 WBC 6.7 (4.0-10.5) x10^3/uL RBC 3.85 L (4.1-5.6) x10^6/uL Hgb 12.5 (12.5-18.0) g/dL Hct 38.3 L (42-50) % MCV 99.5 (78-100) fL MCH 32.5 H (26-32) pg MCHC 32.6 (32-36) g/dL RDW 14.9 H (11.5-14.0) % Plt Count 183 (150-450) x10^3/uL MPV 9.9 (7.5-11.0) fL Gran % 67.3 H (36.0-66.0) % Immature Gran % (Auto) 0.3 (0.00-0.4) % Nucleat RBC Rel Count 0.0 (0.00-0.1) % Eos # (Auto) 0.41 (0-0.5) x10^3/uL Immature Gran # (Auto) 0.02 (0.00-0.03) x10^3u/L Absolute Lymphs (auto) 1.09 (1.0-4.6) x10^3/uL Absolute Monos (auto) 0.63 (0.0-1.3) x10^3/uL Absolute Nucleated RBC 0.00 (0.00-0.01) x10^3u/L Lymphocytes % 16.3 L (24.0-44.0) % Monocytes % 9.4 (0.0-12.0) % Eosinophils % 6.1 H (0.00-5.0) % Basophils % 0.6 (0.0-0.4) % Absolute Granulocytes 4.51 (1.4-6.9) x10^3/uL Basophils # 0.04 (0-0.4) x10^3/uL PT 23.5 H (9.4-12.5) SECONDS INR 2.28 D (0.8-3.0) Sodium 139 (137-145) mmol/L Potassium 4.0 (3.5-5.1) mmol/L Chloride 109 H (98-107) mmol/L Carbon Dioxide 25 (22-30) mmol/L Anion Gap 8.9 (5-15) MEQ/L BUN 22 H (9-20) mg/dL Creatinine 1.16 (0.66-1.25) mg/dL Estimated GFR 63.7 ML/MIN Glucose 131 H (74-106) mg/dL POC Glucometer (74 to 106) mg/dL Calcium 8.0 L (8.4-10.2) mg/dL Total Bilirubin 0.80 (0.2-1.3) mg/dL AST 32 (17-59) U/L ALT 24 (0-50) U/L Alkaline Phosphatase 69 (38-126) U/L Serum Total Protein 6.6 (6.3-8.2) g/dL Albumin 3.7 (3.5-5.0) g/dL Procalcitonin (0.030-0.080) ng/mL 06/26/23 06/26/23 06/26/23 Range/Units 04:10 07:19 11:35 WBC (4.0-10.5) x10^3/uL RBC (4.1-5.6) x10^6/uL Hgb (12.5-18.0) g/dL Hct (42-50) % MCV (78-100) fL MCH (26-32) pg MCHC (32-36) g/dL RDW (11.5-14.0) % Plt Count (150-450) x10^3/uL MPV (7.5-11.0) fL Gran % (36.0-66.0) % Immature Gran % (Auto) (0.00-0.4) % Nucleat RBC Rel Count (0.00-0.1) % Eos # (Auto) (0-0.5) x10^3/uL Immature Gran # (Auto) (0.00-0.03) x10^3u/L Absolute Lymphs (auto) (1.0-4.6) x10^3/uL Absolute Monos (auto) (0.0-1.3) x10^3/uL Absolute Nucleated RBC (0.00-0.01) x10^3u/L Lymphocytes % (24.0-44.0) % Monocytes % (0.0-12.0) % Eosinophils % (0.00-5.0) % Basophils % (0.0-0.4) % Absolute Granulocytes (1.4-6.9) x10^3/uL Basophils # (0-0.4) x10^3/uL PT (9.4-12.5) SECONDS INR (0.8-3.0) Sodium (137-145) mmol/L Potassium (3.5-5.1) mmol/L Chloride (98-107) mmol/L Carbon Dioxide (22-30) mmol/L Anion Gap (5-15) MEQ/L BUN (9-20) mg/dL Creatinine (0.66-1.25) mg/dL Estimated GFR ML/MIN Glucose (74-106) mg/dL POC Glucometer 129 H 162 H (74 to 106) mg/dL Calcium (8.4-10.2) mg/dL Total Bilirubin (0.2-1.3) mg/dL AST (17-59) U/L ALT (0-50) U/L Alkaline Phosphatase (38-126) U/L Serum Total Protein (6.3-8.2) g/dL Albumin (3.5-5.0) g/dL Procalcitonin 0.047 (0.030-0.080) ng/mL Micro Results-Entire Visit: Microbiology 06/24/23 17:05 Blood Culture - Preliminary Blood 06/24/23 16:50 Blood Culture - Preliminary Blood Accuchecks Date 06/26/23 Date 06/26/23 Time 11:46 Time 07:31 - Procedures and Test Procedures and Tests throughout Hospitalization: Therapy Orders & Screens 06/24/23 20:45 ST Screen per Nursing Assess ONCE Comment: Protocol Order Physician Instructions: Greater than [address] Admission Screening Reason For Exam: Triggered on Admission Diagnosis: Elevated INR 7.7 CVA/Dyshpagia/Aphasia: No Cognitive Deficits: No Dehydration/Nutrition Deficit: No Reflux: No Oral-Motor Difficulties: No Pneumonia: Yes [facility] Resident: No Total Points: 5 <BENJA REMY - Last Filed: 06/26/23 23:25> Discharge Exam General Appearance: no apparent distress Neurologic Exam: alert, oriented x 3, cooperative Eye Exam: PERRL Ears, Nose, Throat Exam: normal ENT inspection Neck Exam: normal inspection Respiratory Exam: crackles/rales Cardiovascular Exam: regular rate/rhythm, normal heart sounds Gastrointestinal/Abdomen Exam: soft, normal bowel sounds Male Genitalia Exam: deferred Rectal Exam: deferred Back Exam: normal inspection Extremity Exam: normal inspection <MITA RAMIREZ - Last Filed: 06/26/23 11:26> Final Diagnosis/Problem List - Final Discharge Diagnosis/Problem (1) Supratherapeutic INR Status: Acute Code(s): R79.1 - ABNORMAL COAGULATION PROFILE (2) ROSE (acute kidney injury) Status: Acute Code(s): N17.9 - ACUTE KIDNEY FAILURE, UNSPECIFIED (3) Diabetes mellitus Status: Acute Code(s): E11.9 - TYPE 2 DIABETES MELLITUS WITHOUT COMPLICATIONS (4) Bilateral pneumonia Status: Acute Code(s): J18.9 - PNEUMONIA, UNSPECIFIED ORGANISM <MITA RAMIREZ - Last Filed: 06/26/23 11:26> <MITA RAMIREZ - Last Filed: 06/26/23 11:26> <BENJA REMY - Last Filed: 06/26/23 23:25> - Discharge Disposition: Home, Self-Care Condition: Stable Prescriptions: New Warfarin Sodium 3 mg [Coumadin 3 MG] 9 mg PO COU 30 Days #30 tablet Continue Tamsulosin HCl 0.4 mg [Flomax 0.4 MG] 0.4 mg PO BID Glipizide [Glipizide ER] 10 mg PO BID Gabapentin 300 mg PO 0800,1200 Fluoxetine HCl 20 mg [Prozac 20 MG] 20 mg PO BID Famotidine 20 mg PO BID Atorvastatin Calcium 80 mg PO HS Omeprazole 40 mg PO DAILY Metformin HCl 500 mg [Glucophage 500 MG] 1,000 mg PO BIDWMEALS [place]-3/Dha/Epa/Fish Oil [Fish Oil 1,400 mg Softgel] 1 cap PO BID Pioglitazone 30 mg [Actos 30 MG] 30 mg PO DAILY Metoprolol Tartrate 50 mg [Lopressor 50 MG] 50 mg PO BID Gabapentin [Neurontin ] 600 mg PO HS Discontinued Warfarin Sodium 0 mg PO UD Warfarin Sodium 0 mg PO UD Instructions: What to Do When Your INR Is Too High , Warfarin Follow up with: BRADEN BEATTY [Primary Care Provider] - 07/10/23 11:15 am KE ARROYO [CONSULTING PHYSICIAN] - 07/01/23 8:30 am ANTWAN Encounter - ANTWAN Encounter Attestation ANTWAN Encounter Attestation: "KENDY Martin andalhajiiscussed pertinent aspects of their care with Mita Meyer agree with the history, physical exam (any modifications based on my personal exam will be noted below), assessment, and plan as outlined in original note. Please see immediately below for my summary of findings and additional assessment and plan along with any meaningful corrections/explanations to the Subjective/Objective portions of the ANTWAN note will be noted." My portion of the encounter took place via telemedicine. <BENJA REMY - Last Filed: 06/26/23 23:25>
[2023-06-26 06:00] LABS: Absolute Neutrophil Ct (ANC) 4.51 x10^3/uL (1.4-6.9); BASOPHIL % 0.6 % (0.0-0.4); Basophil (Absolute #) 0.04 x10^3/uL (0-0.4); Eosinophil % 6.1 % (0.00-5.0); Eosinophil (Absolute #) 0.41 x10^3/uL (0-0.5); Hematocrit 38.3 % (42-50); Hemoglobin 12.5 g/dL (12.5-18.0); IMMATURE GRAN # 0.02 x10^3u/L (0.00-0.03); IMMATURE GRAN % 0.3 % (0.00-0.4); Lymphocyte (Absolute #) 1.09 x10^3/uL (1.0-4.6); Lymphocytes % 16.3 % (24.0-44.0); Mean Cell Volume 99.5 fL (78-100); Mean Corpuscular Hemoglobin 32.5 pg (26-32); Mean Corpuscular Hgb Concent. 32.6 g/dL (32-36); Mean Platelet Volume 9.9 fL (7.5-11.0); Monocyte (Absolute #) 0.63 x10^3/uL (0.0-1.3); Monocytes % 9.4 % (0.0-12.0); Neutrophil % 67.3 % (36.0-66.0); Platelet Count 183 x10^3/uL (150-450); Red Blood Count 3.85 x10^6/uL (4.1-5.6); Red Cell Distribution Width 14.9 % (11.5-14.0); White Blood Count 6.7 x10^3/uL (4.0-10.5)
[2023-06-26 06:29] LABS: ALBUMIN 3.7 g/dL (3.5-5.0); ANION GAP 8.9 MEQ/L (5-15); BILIRUBIN,TOTAL 0.8 mg/dL (0.2-1.3); Creatinine 1 1.16 mg/dL (0.66-1.25); EST GLOMERULAR FILTRATION RATE 63.7 ML/MIN; Total Protein 6.6 g/dL (6.3-8.2)
[2023-06-26 07:45] VITALS: RESP 16; TEMP 97.6; O2SAT 94
[2023-06-26] MEDS: ROCEPHIN 1 GM / 100 ML NaCl 1 GM/100 ML IVPB IV SCH (09:00)
[2023-06-26] MEDS: Zithromax 500 MG/ 250 ML NaCl Premix 500 MG/250 ML IVPB IV SCH (09:44)
[2023-06-26] MEDS: PHARMACY RENAL DOSING MC ONE (09:46)
[2023-06-26 11:46] VITALS: BP 140/68; PULSE 53
[2023-06-26] MEDS ORDERED: Coumadin 3 MG PO SCH (18:00)
== END 2023-06-26 13:05 | disposition home or self-care (01) ==
LOC: ED 15:41 → MED SURG 18:15
PROVIDERS: ADMIT Internal Medicine; ATTEND Internal Medicine
DX: R79.1 Abnormal coagulation profile (principal); N17.9 Acute kidney failure, unspecified; J18.9 Pneumonia, unspecified organism; E11.9 Type 2 diabetes mellitus without complications; E78.5 Hyperlipidemia, unspecified; I25.10 Atherosclerotic heart disease of native coronary artery without angina pectoris; I73.9 Peripheral vascular disease, unspecified; Z86.73 Personal history of transient ischemic attack (TIA), and cerebral infarction without residual deficits; Z79.01 Long term (current) use of anticoagulants; Z79.899 Other long term (current) drug therapy; Z20.828 Contact with and (suspected) exposure to other viral communicable diseases
CPT/HCPCS: 0241U; 36000; 36415; 80053; 82947; 83036; 83735; 83880; 84145; 85025; 85610; 87040; 94760; 96365; 96372; 99283; G0378; Q3014; J0456; J0696; J1817; J3430; A9270-GY

== ENCOUNTER 2023-10-13 10:30 | Emergency (ER) | payer MEDICARE ==
[2023-10-13 10:46] VITALS: TEMP 96.4
--- NOTE | 2023-10-13 10:49 | ERPHSYRPT ---
- History of Present Illness Time Seen by Provider: 10/13/23 10:51 Patient Subjective Stated Complaint: Tachycardia Triage Nursing Assessment: Patient brought back to ED per w/c and transferred to bed per self. Patient A+O X3. Patient's skin pink, warm and dry. Patient was starting PT today and the therapist stated before getting started patient's heart rate was 147. Patient denies pain, SOB, N/V or diarrhea. Physician History: Patient is an 82-year-old male presents to our ED as a referral from physical therapy for evaluation of tachycardia. Patient receives physical therapy to both knees. Prior to starting his therapy session therapist observed a heart rate of 147. Patient however was asymptomatic and did not realize his heart rate was elevated. No associated chest pain or shortness of breath. No nausea or vomiting or diaphoresis. Patient was asymptomatic and continues to be asymptomatic at this time. He denies nausea vomiting or diarrhea. No fluid losses. Patient denies pain. Patient voices no other complaints or concerns at this time. Portions of this note were created with voice recognition technology. There may be grammatical, spelling, punctuation or sound alike errors Timing/Duration: today Severity: mild Modifying Factors: Improves With: nothing Associated Symptoms: denies symptoms Allergies/Adverse Reactions: No Known Drug Allergies Allergy (Verified 10/13/23 10:39) Home Medications: Atorvastatin Calcium 80 mg PO HS 12/31/22 [History] Famotidine 20 mg PO BID 12/31/22 [History] Fluoxetine HCl 20 mg [Prozac 20 MG] 20 mg PO BID 12/31/22 [History] Gabapentin 300 mg PO 0800,1200 12/31/22 [History] Glipizide [Glipizide ER] 10 mg PO BID 12/31/22 [History] Metformin HCl 500 mg [Glucophage 500 MG] 1,000 mg PO BIDWMEALS 12/31/22 [History] [place]-3/Dha/Epa/Fish Oil [Fish Oil 1,400 mg Softgel] 1 cap PO BID 12/31/22 [History] Omeprazole 40 mg PO DAILY 12/31/22 [History] Tamsulosin HCl 0.4 mg [Flomax 0.4 MG] 0.4 mg PO BID 12/31/22 [History] Gabapentin [Neurontin ] 600 mg PO HS 06/24/23 [History] Metoprolol Tartrate 50 mg [Lopressor 50 MG] 50 mg PO BID 06/24/23 [History] Pioglitazone 30 mg [Actos 30 MG] 30 mg PO DAILY 06/24/23 [History] Hx Tetanus, Diphtheria Vaccination/Date Given: No Hx Influenza Vaccination/Date Given: Yes Hx Pneumococcal Vaccination/Date Given: Yes Immunizations Up to Date: Yes Travel Risk - International Travel Have you traveled outside of the country in past 3 weeks: No - Emerging Infectious Disease Are you exhibiting symptoms associated with any current EIDs: No - Review of Systems Constitutional: No Symptoms, No Fever, No Chills Eyes: No Symptoms Ears, Nose, & Throat: No Symptoms Respiratory: No Symptoms, No Cough, No Dyspnea Cardiac: No Symptoms, No Chest Pain, No Edema, No Syncope Abdominal/Gastrointestinal: No Symptoms, No Abdominal Pain, No Nausea, No Vomiting, No Diarrhea Genitourinary Symptoms: No Symptoms, No Dysuria Musculoskeletal: No Symptoms, No Back Pain, No Neck Pain Skin: No Symptoms, No Rash Neurological: No Symptoms, No Dizziness, No Focal Weakness, No Sensory Changes Psychological: No Symptoms Endocrine: No Symptoms Hematologic/Lymphatic: No Symptoms Immunological/Allergic: No Symptoms All Other Systems: Reviewed and Negative - Past Medical History Pertinent Past Medical History: Yes Neurological History: Peripheral Neuropathy, TIA ENT History: No Pertinent History Cardiac History: Hypertension Respiratory History: COPD, Emphysema Endocrine Medical History: Diabetes Type II, Other Musculoskeletal History: Osteoarthritis GI Medical History: No Pertinent History History: No Pertinent History Psycho-Social History: No Pertinent History Male Reproductive Disorders: Prostate Problems Other Medical History: CAROTID ARTERY SURGERY. WOUND CARE FOR L GREAT TOE FOR 1YEAR AND 7 MONTHS. - Past Surgical History Past Surgical History: Yes (stint left carotid) Neuro Surgical History: No Pertinent History Cardiac: No Pertinent History Respiratory: No Pertinent History Gastrointestinal: No Pertinent History Genitourinary: No Pertinent History Musculoskeletal: No Pertinent History Male Surgical History: No Pertinent History Other Surgical History: stents in bilat legs due to poor circulation - Social History Smoking Status: Former smoker How long have you smoked: 50 yrs Exposure to second hand smoke: No Drug Use: none Patient Lives Alone: Yes - Nursing Vital Signs Nursing Vital Signs: Initial Vital Signs Temperature 96.4 F 10/13/23 10:39 Pulse Rate 122 H 10/13/23 10:39 Respiratory Rate 17 10/13/23 10:39 Blood Pressure 157/100 10/13/23 10:39 O2 Sat by Pulse Oximetry 97 10/13/23 10:39 Pain Scale Pain Intensity 0 - Physical Exam General Appearance: no apparent distress, alert Eye Exam: PERRL/EOMI, eyes nml inspection Ears, Nose, Throat Exam: normal ENT inspection, TMs normal, pharynx normal, moist mucous membranes Neck Exam: normal inspection, non-tender, supple, full range of motion Respiratory Exam: normal breath sounds, lungs clear, No respiratory distress Cardiovascular Exam: regular rate/rhythm, normal heart sounds, normal peripheral pulses Gastrointestinal/Abdomen Exam: soft, normal bowel sounds, No tenderness, No mass Back Exam: normal inspection, normal range of motion, No CVA tenderness, No vertebral tenderness Extremity Exam: normal inspection, normal range of motion, pelvis stable Neurologic Exam: alert, oriented x 3, cooperative, normal mood/affect, sensation nml, No motor deficits Skin Exam: normal color, warm, dry, No rash Lymphatic Exam: No adenopathy SpO2 Interpretation: normal SpO2: 97 O2 Delivery: Room Air - Course Nursing assessment & vital signs reviewed: Yes EKG Interpreted by Me: RATE, Sinus Tach, LAFB, NORMAL INTERVALS, NORMAL QRS Ordered Tests: Active Orders 24 hr Category Date Time Status Apprentice Funeral Director STAT Care 10/13/23 10:47 Active EKG-ER Only STAT Care 10/13/23 10:46 Active IV Insertion STAT Care 10/13/23 10:46 Active Pulse Oximetry (ED) STAT Care 10/13/23 10:46 Active CBC W DIFF Stat Lab 10/13/23 10:53 Completed CMP Stat Lab 10/13/23 10:53 Completed NT PRO BNPII Stat Lab 10/13/23 10:53 Completed TROPONIN Q4H Lab 10/13/23 10:53 Completed TROPONIN Q4H Lab 10/13/23 13:55 Completed TROPONIN Q4H Lab 10/13/23 19:00 Ordered TSH [TSH, 3RD Generation] Stat Lab 10/13/23 10:53 Completed UA W/RFX UR CULTURE Stat Lab 10/13/23 11:09 Completed Medication Summary Discontinued Medications Generic Name Dose Route Start Last Admin Trade Name Freq PRN Reason Stop Dose Admin Sodium Chloride 1,000 mls @ 999 mls/hr 10/13/23 11:17 10/13/23 11:23 Sodium Chloride 0.9% 1000 Ml IV 10/13/23 12:17 999 mls/hr .Q1H1M STA Administration Sodium Chloride Confirm 10/13/23 11:21 Sodium Chloride 0.9% 1000 Ml Administered 10/13/23 11:22 Dose 1,000 mls @ ud .ROUTE .STK-MED ONE Lab/Rad Data: Laboratory Result Diagrams 10/13/23 10:53 10/13/23 10:53 Laboratory Results 10/13/23 10/13/23 10/13/23 Range/Units 13:55 11:09 10:53 WBC (4.0-10.5) x10^3/uL RBC (4.1-5.6) x10^6/uL Hgb (12.5-18.0) g/dL Hct (42-50) % MCV (78-100) fL MCH (26-32) pg MCHC (32-36) g/dL RDW (11.5-14.0) % Plt Count (150-450) x10^3/uL MPV (7.5-11.0) fL Gran % (36.0-66.0) % Immature Gran % (Auto) (0.00-0.4) % Nucleat RBC Rel Count (0.00-0.1) % Eos # (Auto) (0-0.5) x10^3/uL Immature Gran # (Auto) (0.00-0.03) x10^3u/L Absolute Lymphs (auto) (1.0-4.6) x10^3/uL Absolute Monos (auto) (0.0-1.3) x10^3/uL Absolute Nucleated RBC (0.00-0.01) x10^3u/L Lymphocytes % (24.0-44.0) % Monocytes % (0.0-12.0) % Eosinophils % (0.00-5.0) % Basophils % (0.0-0.4) % Absolute Granulocytes (1.4-6.9) x10^3/uL Basophils # (0-0.4) x10^3/uL Sodium (135-145) mmol/L Potassium (3.5-5.1) mmol/L Chloride (98-107) mmol/L Carbon Dioxide (22-30) mmol/L Anion Gap (5-15) MEQ/L BUN (9-20) mg/dL Creatinine (0.66-1.25) mg/dL Estimated GFR ML/MIN Glucose (74-106) mg/dL Calcium (8.4-10.2) mg/dL Total Bilirubin (0.2-1.3) mg/dL AST (17-59) U/L ALT (0-50) U/L Alkaline Phosphatase (38-126) U/L Troponin I < 0.012 (0.000-0.033) ng/mL NT-Pro-B Natriuret Pep (<300) pg/mL Serum Total Protein (6.3-8.2) g/dL Albumin (3.5-5.0) g/dL TSH 3rd Generation 3.145 (0.470-4.680) mIU/L Urine Color Yellow (Yellow) Urine Appearance Clear (Clear) Urine pH 6.0 (4.6-8.0) Ur Specific [place] 1.010 (1.005-1.030) Urine Protein Negative (Negative) Urine Glucose (UA) Negative (Negative) mg/dL Urine Ketones Negative (Negative) Urine Blood Negative (Negative) Urine Nitrite Negative (Negative) Urine Bilirubin Negative (Negative) Urine Urobilinogen 0.2 (0.2) mg/dL Ur Leukocyte Esterase Negative (Negative) U Hyaline Cast (Auto) NONE SEEN (0-2) /LPF Urine Microscopic RBC 0-2 (0-5) /HPF Urine Microscopic WBC 0-2 (0-5) /HPF Ur Epithelial Cells None Seen (None Seen) /HPF Urine Bacteria None Seen (None Seen) /HPF Urine Culture Reflexed NO (NO) 10/13/23 10/13/23 10/13/23 Range/Units 10:53 10:53 10:53 WBC 8.0 (4.0-10.5) x10^3/uL RBC 4.18 (4.1-5.6) x10^6/uL Hgb 13.3 (12.5-18.0) g/dL Hct 40.2 L (42-50) % MCV 96.2 (78-100) fL MCH 31.8 (26-32) pg MCHC 33.1 (32-36) g/dL RDW 14.5 H (11.5-14.0) % Plt Count 223 (150-450) x10^3/uL MPV 9.0 (7.5-11.0) fL Gran % 75.8 H (36.0-66.0) % Immature Gran % (Auto) 0.3 (0.00-0.4) % Nucleat RBC Rel Count 0.0 (0.00-0.1) % Eos # (Auto) 0.24 (0-0.5) x10^3/uL Immature Gran # (Auto) 0.02 (0.00-0.03) x10^3u/L Absolute Lymphs (auto) 0.91 L (1.0-4.6) x10^3/uL Absolute Monos (auto) 0.72 (0.0-1.3) x10^3/uL Absolute Nucleated RBC 0.00 (0.00-0.01) x10^3u/L Lymphocytes % 11.4 L (24.0-44.0) % Monocytes % 9.0 (0.0-12.0) % Eosinophils % 3.0 (0.00-5.0) % Basophils % 0.5 (0.0-0.4) % Absolute Granulocytes 6.05 (1.4-6.9) x10^3/uL Basophils # 0.04 (0-0.4) x10^3/uL Sodium 138 (135-145) mmol/L Potassium 4.6 (3.5-5.1) mmol/L Chloride 105 (98-107) mmol/L Carbon Dioxide 21 L (22-30) mmol/L Anion Gap 16.8 H (5-15) MEQ/L BUN 29 H (9-20) mg/dL Creatinine 1.63 H (0.66-1.25) mg/dL Estimated GFR 42.3 ML/MIN Glucose 209 H (74-106) mg/dL Calcium 9.1 (8.4-10.2) mg/dL Total Bilirubin 1.00 (0.2-1.3) mg/dL AST 29 (17-59) U/L ALT 26 (0-50) U/L Alkaline Phosphatase 84 (38-126) U/L Troponin I < 0.012 (0.000-0.033) ng/mL NT-Pro-B Natriuret Pep 187 (<300) pg/mL Serum Total Protein 8.3 H (6.3-8.2) g/dL Albumin 4.6 (3.5-5.0) g/dL TSH 3rd Generation (0.470-4.680) mIU/L Urine Color (Yellow) Urine Appearance (Clear) Urine pH (4.6-8.0) Ur Specific [place] (1.005-1.030) Urine Protein (Negative) Urine Glucose (UA) (Negative) mg/dL Urine Ketones (Negative) Urine Blood (Negative) Urine Nitrite (Negative) Urine Bilirubin (Negative) Urine Urobilinogen (0.2) mg/dL Ur Leukocyte Esterase (Negative) U Hyaline Cast (Auto) (0-2) /LPF Urine Microscopic RBC (0-5) /HPF Urine Microscopic WBC (0-5) /HPF Ur Epithelial Cells (None Seen) /HPF Urine Bacteria (None Seen) /HPF Urine Culture Reflexed (NO) - Progress Progress: improved Progress Note: 82-year-old male presents to our ED as a referral from physical therapy clinic f or evaluation of elevated heart rate. Patient otherwise asymptomatic. Physical exam essentially nonremarkable. Laboratory workup reveals elevated creatinine likely secondary to dehydration. IV fluids infused. Heart rate normalized. TSH within normal limits. Patient had a meal in our ED. He feels well. He has no complaints no indication for further workup at this time. Troponin negative x 2. Daughter at bedside. Will discharge home at this time. They agree to follow-up with primary care doctor within 48 hours for evaluation. Portions of this note were created with voice recognition technology. There may be grammatical, spelling, punctuation or sound alike errors Complexity problem addressed is moderate acute complicated. No critical care time. Complex of data reviewed and analyzed is moderate. Test ordered test reviewed results analyzed and correlated clinically with history and physical exam. Risk of complication and or risk of morbidity/mortality patient managem ent is moderate. Vital stable. Time spent to discharge patient approximately 20 minutes. Plan of care established for shared decision making. No social determinants of health present impede follow-up. Portions of this note were created with voice recognition technology. There may be grammatical, spelling, punctuation or sound alike errors 10/13/23 14:49 Counseled pt/family regarding: lab results, diagnosis, rad results - Departure Departure Disposition: Home Clinical Impression: Tachycardia, Dehydration, Elevated serum creatinine Condition: Stable Critical Care Time: No Referrals: BRADEN BEATTY [Primary Care Provider] - Follow up/PCP as directed Additional Instructions: Discharge/Care Plan KENDY HERZOG was seen on 10/13/23 in the Emergency Room. The patient was counseled regarding Diagnosis,Lab results, Imaging studies, need for follow up and when to return to the Emergency Room. Prescriptions given: Discharge Note I have spoken with the patient and/or caregivers. I have explained the patient's condition, diagnosis and treatment plan based on the information available to me at this time. I have answered the patient's and/or caregiver's questions and addressed any concerns. The patient and/or caregivers have as good understanding of the patient's diagnosis, condition and treatment plan as can be expected at this point. The vital signs have been stable. The patient's condition is stable and appropriate for discharge from the emergency department. The patient will pursue further outpatient evaluation with the primary care physician or other designated or consulting physician as outlined in the discharge instructions. The patient and/or caregivers are agreeable to this plan of care and follow-up instructions have been explained in detail. The patient and/or caregivers have received these instruction. The patient/and or caregivers are aware that any significant change in condition or worsening of symptoms should prompt an immediate return to this or the closest emergency department or call 911.
[2023-10-13 11:04] LABS: Absolute Neutrophil Ct (ANC) 6.05 x10^3/uL (1.4-6.9); BASOPHIL % 0.5 % (0.0-0.4); Basophil (Absolute #) 0.04 x10^3/uL (0-0.4); Eosinophil (Absolute #) 0.24 x10^3/uL (0-0.5); Hematocrit 40.2 % (42-50); Hemoglobin 13.3 g/dL (12.5-18.0); IMMATURE GRAN # 0.02 x10^3u/L (0.00-0.03); IMMATURE GRAN % 0.3 % (0.00-0.4); Lymphocyte (Absolute #) 0.91 x10^3/uL (1.0-4.6); Lymphocytes % 11.4 % (24.0-44.0); Mean Cell Volume 96.2 fL (78-100); Mean Corpuscular Hemoglobin 31.8 pg (26-32); Mean Corpuscular Hgb Concent. 33.1 g/dL (32-36); Monocyte (Absolute #) 0.72 x10^3/uL (0.0-1.3); Neutrophil % 75.8 % (36.0-66.0); Platelet Count 223 x10^3/uL (150-450); Red Blood Count 4.18 x10^6/uL (4.1-5.6); Red Cell Distribution Width 14.5 % (11.5-14.0)
[2023-10-13] MEDS ORDERED: Sodium Chloride 0.9% 1000 ML 1,000 ML ONE (11:21)
[2023-10-13] MEDS: Sodium Chloride 0.9% 1000 ML 1,000 ML IV STA (11:23)
[2023-10-13 11:27] LABS: ALBUMIN 4.6 g/dL (3.5-5.0); ANION GAP 16.8 MEQ/L (5-15); Calcium 9.1 mg/dL (8.4-10.2); Creatinine 1 1.63 mg/dL (0.66-1.25); EST GLOMERULAR FILTRATION RATE 42.3 ML/MIN; Potassium 4.6 mmol/L (3.5-5.1); Total Protein 8.3 g/dL (6.3-8.2)
[2023-10-13 11:44] LABS: Appearance Clear (Clear); Bacteria None Seen /HPF (None Seen); Bilirubin Negative (Negative); Blood Negative (Negative); Epithelial Cells None Seen /HPF (None Seen); Glucose, Urine Negative (Negative); Hyaline Casts NONE SEEN /LPF (0-2); Ketones Negative (Negative); Leukocyte Esterase Negative (Negative); Nitrite Negative (Negative); Protein,Urine Dip Negative (Negative); RBC 0-2 /HPF (0-5); Urobilinogen 0.2 mg/dL (0.2); WBC 0-2 /HPF (0-5)
[2023-10-13 11:46] LABS: ADD URINE CULTURE? NO (NO)
[2023-10-13 14:58] VITALS: BP 129/78; PULSE 90; RESP 18; O2SAT 98
== END 2023-10-13 15:06 | disposition home or self-care (01) ==
LOC: ED 10:30
DX: R00.0 Tachycardia, unspecified (principal); E86.0 Dehydration; R79.89 Other specified abnormal findings of blood chemistry; I10 Essential (primary) hypertension; E11.42 Type 2 diabetes mellitus with diabetic polyneuropathy; Z79.84 Long term (current) use of oral hypoglycemic drugs; Z79.899 Other long term (current) drug therapy
CPT/HCPCS: 36000; 36415; 80053; 81001; 83880; 84443; 84484; 85025; 93005; 93041; 94760; 99284

== ENCOUNTER 2023-12-13 20:18 | Emergency (ER) | payer MEDICARE ==
--- NOTE | 2023-12-13 20:44 | ERPHSYRPT ---
- History of Present Illness Time Seen by Provider: 12/13/23 20:27 Source: patient Exam Limitations: no limitations Physician History: Pt states for the past 3 months he has had intermittent blurry vision and intermittent tingling of the left upper & lower extremities with episodes lasting up to 20 minutes - no tingling now. Pt also c/o a vertex headache today 1/10 in severity and coughing for the past week. Pt denies chest pain, shortness of air, fever, abdominal pain, nausea, vomiting. Pt has Hx of neuropathy. Allergies/Adverse Reactions: No Known Drug Allergies Allergy (Verified 12/13/23 20:35) Home Medications: Atorvastatin Calcium 80 mg PO HS 12/31/22 [History] Famotidine 20 mg PO BID 12/31/22 [History] Fluoxetine HCl 20 mg [Prozac 20 MG] 20 mg PO BID 12/31/22 [History] Glipizide [Glipizide ER] 10 mg PO BID 12/31/22 [History] [place]-3/Dha/Epa/Fish Oil [Fish Oil 1,400 mg Softgel] 1 cap PO BID 12/31/22 [History] Omeprazole 40 mg PO DAILY 12/31/22 [History] Tamsulosin HCl 0.4 mg [Flomax 0.4 MG] 0.4 mg PO BID 12/31/22 [History] Gabapentin [Neurontin ] 600 mg PO BID 06/24/23 [History] Metoprolol Tartrate 50 mg [Lopressor 50 MG] 25 mg PO BID 06/24/23 [History] Pioglitazone 30 mg [Actos 30 MG] 30 mg PO DAILY 06/24/23 [History] Furosemide [Lasix] 20 mg PO DAILY 12/13/23 [History] Losartan Potassium 50 mg [Cozaar 50 MG] 50 mg PO DAILY 12/13/23 [History] Rivaroxaban [Xarelto] 20 mg PO HS 12/13/23 [History] Sitagliptin Phosphate [Januvia] 100 mg PO DAILY 12/13/23 [History] Vibegron [Gemtesa] 75 mg PO DAILY 12/13/23 [History] Hx Tetanus, Diphtheria Vaccination/Date Given: No Hx Influenza Vaccination/Date Given: Yes Hx Pneumococcal Vaccination/Date Given: Yes Travel Risk - Emerging Infectious Disease Are you exhibiting symptoms associated with any current EIDs: No - Review of Systems Constitutional: No Fever Respiratory: Cough, No Dyspnea Cardiac: No Chest Pain Abdominal/Gastrointestinal: No Abdominal Pain, No Nausea, No Vomiting Neurological: Headache - Past Medical History Pertinent Past Medical History: Yes Neurological History: Peripheral Neuropathy, TIA ENT History: No Pertinent History Cardiac History: Hypertension Respiratory History: COPD, Emphysema Endocrine Medical History: Diabetes Type II, Other Musculoskeletal History: Osteoarthritis GI Medical History: No Pertinent History History: No Pertinent History Psycho-Social History: No Pertinent History Male Reproductive Disorders: Prostate Problems Other Medical History: CAROTID ARTERY SURGERY. WOUND CARE FOR L GREAT TOE FOR 1YEAR AND 7 MONTHS. - Past Surgical History Past Surgical History: Yes (stint left carotid) Neuro Surgical History: No Pertinent History Cardiac: No Pertinent History Respiratory: No Pertinent History Gastrointestinal: No Pertinent History Genitourinary: No Pertinent History Musculoskeletal: No Pertinent History Male Surgical History: No Pertinent History Other Surgical History: stents in bilat legs due to poor circulation - Social History Smoking Status: Former smoker How long have you smoked: 50 yrs Exposure to second hand smoke: No Drug Use: none Patient Lives Alone: Yes - Social Determinants of Health Will the patient participate in the screening: Yes Do you worry about a steady place to live?: No In the past 12 months,have you had to go without utilities?: No Transportation Issues: No Has anyone in your support network made you feel unsafe?: No Have you or anyone in your house had to go without enough: No - Nursing Vital Signs Nursing Vital Signs: Initial Vital Signs Pulse Rate 73 12/13/23 20:31 Respiratory Rate 18 12/13/23 20:31 Blood Pressure 138/65 12/13/23 20:31 O2 Sat by Pulse Oximetry 98 12/13/23 20:31 Pain Scale Pain Intensity 0 - [place] Coma Scale Best Eye Response (Phyllis): (4) open spontaneously Best Verbal Response ([place]): (5) oriented Best Motor Response (Phy[place]is): (6) obeys commands [place] Total: 15 - Physical Exam General Appearance: alert Eye Exam: bilateral eye: PERRL, EOMI Ears, Nose, Throat Exam: TMs normal, pharynx normal Neck Exam: normal inspection Respiratory: lungs clear Cardiovascular: normal heart sounds Gastrointestinal: normal bowel sounds Back Exam: normal inspection Extremity Exam: normal range of motion 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 Prominent markings and inhomogeneous areas at both lower zones could be infiltration with mild atelectasis/vscular congestion.) - CT Exams Head CT Interpretation: Tele-radiologist Report (No acute intracranial abnormality.) Ordered Tests: Active Orders 24 hr Category Date Time Status EKG-ER Only STAT Care 12/13/23 20:41 Active IV Insertion STAT Care 12/13/23 20:41 Active CHEST 2 VIEWS (PA AND LAT) Stat Exams 12/13/23 20:41 Completed HEAD WITHOUT CONTRAST [CT] Stat Exams 12/13/23 20:42 Completed BLOOD CULTURE Stat Lab 12/14/23 00:11 Ordered BMP Stat Lab 12/13/23 21:00 Completed CBC W DIFF Stat Lab 12/13/23 21:00 Completed CULTURE,SPUTUM Stat Lab 12/14/23 00:11 Ordered MAGNESIUM Stat Lab 12/13/23 21:00 Completed TROPONIN Q4H Lab 12/13/23 21:00 Completed TROPONIN Q4H Lab 12/14/23 00:45 Ordered TROPONIN Q4H Lab 12/14/23 04:45 Ordered Medication Summary Generic Name Dose Route Start Last Admin Trade Name Freq PRN Reason Stop Dose Admin Sodium Chloride 1,000 mls @ 100 mls/hr 12/13/23 20:45 12/13/23 21:23 Sodium Chloride 0.9% 1000 Ml IV 01/12/24 20:44 100 mls/hr .Q10H CRIS Administration Sodium Chloride 1,000 mls @ 999 mls/hr 12/14/23 00:10 Sodium Chloride 0.9% 1000 Ml IV 12/14/23 01:10 .Q1H1M STA Ceftriaxone Sodium 1 gm in 100 mls @ 200 mls/hr 12/14/23 00:10 Rocephin 1 Gm / 100 Ml Nacl IV 12/14/23 00:39 STAT ONE Azithromycin 500 mg in 250 mls @ 250 mls/hr 12/14/23 00:10 Zithromax 500 Mg/ 250 Ml Nacl Premix IV 12/14/23 01:09 STAT STA Discontinued Medications Generic Name Dose Route Start Last Admin Trade Name Monik PRN Reason Stop Dose Admin Albuterol Sulfate 2.5 mg 12/14/23 00:10 Albuterol Sulfate 2.5 Mg/3 Ml Neb IH 12/14/23 00:11 STAT ONE Lab/Rad Data: Laboratory Result Diagrams 12/13/23 21:00 12/13/23 21:00 Laboratory Results 12/13/23 12/13/23 12/13/23 Range/Units 21:00 21:00 21:00 WBC (4.23-9.07) x10^3/uL RBC (4.63-6.08) x10^6/uL Hgb (13.7-17.5) g/dL Hct (40.1-51.0) % MCV (79.0-92.2) fL MCH (25.7-32.2) pg MCHC (32.3-36.5) g/dL RDW (11.6-14.4) % Plt Count (163-337) x10^3/uL MPV (9.4-12.4) fL Gran % (34.0-67.9) % Immature Gran % (Auto) (0.001-0.429) % Nucleat RBC Rel Count (0.00-0.2) % Eos # (Auto) (0.04-0.54) x10^3/uL Immature Gran # (Auto) (0.001-0.031) x10^3u/L Absolute Lymphs (auto) (1.32-3.57) x10^3/uL Absolute Monos (auto) (0.30-0.82) x10^3/uL Absolute Nucleated RBC (0.00-0.012) x10^3u/L Lymphocytes % (21.8-53.1) % Monocytes % (5.3-12.2) % Eosinophils % (0.8-7.0) % Basophils % (0.2-1.2) % Absolute Granulocytes (1.78-5.38) x10^3/uL Basophils # (0.01-0.08) x10^3/uL Sodium 141 (135-145) mmol/L Potassium 5.1 (3.5-5.1) mmol/L Chloride 106 (98-107) mmol/L Carbon Dioxide 27 (22-30) mmol/L Anion Gap 13.4 (5-15) MEQ/L BUN 29 H (9-20) mg/dL Creatinine 1.90 H (0.66-1.25) mg/dL Estimated GFR 35.0 ML/MIN Glucose 194 H (74-106) mg/dL Calcium 8.7 (8.4-10.2) mg/dL Magnesium 2.0 (1.6-2.3) mg/dL Troponin I < 0.012 (0.000-0.033) ng/mL 12/13/23 Range/Units 21:00 WBC 6.2 (4.23-9.07) x10^3/uL RBC 3.84 L (4.63-6.08) x10^6/uL Hgb 12.2 L (13.7-17.5) g/dL Hct 37.4 L (40.1-51.0) % MCV 97.4 H (79.0-92.2) fL MCH 31.8 (25.7-32.2) pg MCHC 32.6 (32.3-36.5) g/dL RDW 14.6 H (11.6-14.4) % Plt Count 233 (163-337) x10^3/uL MPV 8.8 L (9.4-12.4) fL Gran % 69.4 H (34.0-67.9) % Immature Gran % (Auto) 0.2 (0.001-0.429) % Nucleat RBC Rel Count 0.0 (0.00-0.2) % Eos # (Auto) 0.31 (0.04-0.54) x10^3/uL Immature Gran # (Auto) 0.01 (0.001-0.031) x10^3u/L Absolute Lymphs (auto) 0.89 L (1.32-3.57) x10^3/uL Absolute Monos (auto) 0.65 (0.30-0.82) x10^3/uL Absolute Nucleated RBC 0.00 (0.00-0.012) x10^3u/L Lymphocytes % 14.3 L (21.8-53.1) % Monocytes % 10.5 (5.3-12.2) % Eosinophils % 5.0 (0.8-7.0) % Basophils % 0.6 (0.2-1.2) % Absolute Granulocytes 4.31 (1.78-5.38) x10^3/uL Basophils # 0.04 (0.01-0.08) x10^3/uL Sodium (135-145) mmol/L Potassium (3.5-5.1) mmol/L Chloride (98-107) mmol/L Carbon Dioxide (22-30) mmol/L Anion Gap (5-15) MEQ/L BUN (9-20) mg/dL Creatinine (0.66-1.25) mg/dL Estimated GFR ML/MIN Glucose (74-106) mg/dL Calcium (8.4-10.2) mg/dL Magnesium (1.6-2.3) mg/dL Troponin I (0.000-0.033) ng/mL - Progress Progress: improved Progress Note: 12/14/23 00:22 Pt wants to go home. Counseled pt/family regarding: lab results, diagnosis, need for follow-up, rad results Medical Desision Making - Diagnostic Testing Diagnostic test were ordered, analyzed, and reviewed by me: Yes Radiological Interpretation: Teleradiologist Report - Departure Departure Disposition: Home Clinical Impression: Pneumonia, Headache, Intermittent left sided tingling Condition: Stable Critical Care Time: No Referrals: BRADEN BEATTY [Primary Care Provider] - Follow up/PCP as directed Instructions: Pneumonia, Adult (DC) Additional Instructions: Follow up with private doctor today. Prescriptions: Albuterol 2.5 mg/3 ml Neb [Proventil 2.5 mg/3 ml Neb] 2.5 mg IH Q4HRT #20 Cefpodoxime Proxetil 200 mg [Vantin 200 mg] 200 mg PO BID #20 tablet Azithromycin 250 mg [Zithromax 250 MG TABLET] 250 mg PO ZPACK #6 tablet
[2023-12-13 20:46] VITALS: TEMP 97.7
[2023-12-13 21:05] LABS: Absolute Neutrophil Ct (ANC) 4.31 x10^3/uL (1.78-5.38); BASOPHIL % 0.6 % (0.2-1.2); Basophil (Absolute #) 0.04 x10^3/uL (0.01-0.08); Eosinophil (Absolute #) 0.31 x10^3/uL (0.04-0.54); Hematocrit 37.4 % (40.1-51.0); Hemoglobin 12.2 g/dL (13.7-17.5); IMMATURE GRAN # 0.01 x10^3u/L (0.001-0.031); IMMATURE GRAN % 0.2 % (0.001-0.429); Lymphocyte (Absolute #) 0.89 x10^3/uL (1.32-3.57); Lymphocytes % 14.3 % (21.8-53.1); Mean Cell Volume 97.4 fL (79.0-92.2); Mean Corpuscular Hemoglobin 31.8 pg (25.7-32.2); Mean Corpuscular Hgb Concent. 32.6 g/dL (32.3-36.5); Mean Platelet Volume 8.8 fL (9.4-12.4); Monocyte (Absolute #) 0.65 x10^3/uL (0.30-0.82); Monocytes % 10.5 % (5.3-12.2); Neutrophil % 69.4 % (34.0-67.9); Platelet Count 233 x10^3/uL (163-337); Red Blood Count 3.84 x10^6/uL (4.63-6.08); Red Cell Distribution Width 14.6 % (11.6-14.4); White Blood Count 6.2 x10^3/uL (4.23-9.07)
[2023-12-13] MEDS ORDERED: Sodium Chloride 0.9% 1000 ML 1,000 ML ONE (21:06)
[2023-12-13] MEDS: Sodium Chloride 0.9% 1000 ML 1,000 ML IV SCH (21:23)
[2023-12-13 21:26] LABS: ANION GAP 13.4 MEQ/L (5-15); Calcium 8.7 mg/dL (8.4-10.2); Creatinine 1 1.9 mg/dL (0.66-1.25); Potassium 5.1 mmol/L (3.5-5.1)
--- NOTE | 2023-12-13 22:18 | XRAY ---
CLINICAL HISTORY: headache COMPARISON: None. TECHNIQUE: CT head was performed without IV contrast. One of the following dose reduction techniques was utilized for this exam. Automated exposure control, adjustment of the mA and/or kV according to patient size, and use of iterative reconstruction. DLP: 1070.09mGy-cm, CTDI:53.92 mGy. FINDINGS: No acute vascular territory infarct or parenchymal bleed. 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 Senila atrophy noted. No brain herniation, mass effect, or midline shift. No intra-axial or extra-axial mass or collection was seen. The ventricles are normal, with no acute hydrocephalus. The brainstem is normal. The posterior fossa is unremarkable. No acute calvarial fracture. No scalp hematoma. Paranasal sinuses and mastoid air are normally pneumatized. Orbits are normal. IMPRESSION: No acute intracranial abnormality. Electronically Signed by: Jaswinder Alvarado MD. (12/13/2023 22:13:56 EDT)
--- NOTE | 2023-12-13 23:11 | XRAY ---
CLINICAL HISTORY: left sided tingling COMPARISON: None. TECHNIQUE: X-ray examination of the chest is performed in PA and lateral 2 views. FINDINGS: Enlarged heart size. Prominent markings and Inhomogeneous areas at both lower zones. Inhomogeneous shadowing at lower retrocardiac space. Cardiophrenic and costophrenic angles are clear. Mediastinal hilar shadows are normal. Visualized bones are intact. Moderate thoracic spondylosis. IMPRESSION: Enlarged heart size. Prominent markings and inhomogeneous areas at both lower zones could be Infiltration with mild atelectasis/vascular congestion. Clinical and laboratory correlation is advised. Electronically Signed by: Jaswinder Alvarado MD. (12/13/2023 23:08:26 EDT)
[2023-12-14] MEDS ORDERED: PROVENTIL 2.5 MG/3 ML NEB IH ONE (00:17)
[2023-12-14] MEDS: PROVENTIL 2.5 MG/3 ML NEB IH ONE (00:28)
[2023-12-14] MEDS ORDERED: ROCEPHIN 1 GM / 100 ML NaCl 1 GM/100 ML IVPB IV ONE (00:32)
[2023-12-14] MEDS: Sodium Chloride 0.9% 1000 ML 1,000 ML IV STA (00:34)
[2023-12-14] MEDS: ROCEPHIN 1 GM / 100 ML NaCl 1 GM/100 ML IVPB IV ONE (00:34)
[2023-12-14] MEDS ORDERED: Zithromax 500 MG/ 250 ML NaCl Premix 500 MG/250 ML IVPB IV ONE (01:07)
[2023-12-14] MEDS: Zithromax 500 MG/ 250 ML NaCl Premix 500 MG/250 ML IVPB IV STA (01:10)
[2023-12-14 02:46] VITALS: BP 143/59; PULSE 70; RESP 17; O2SAT 97
== END 2023-12-14 02:40 | disposition home or self-care (01) ==
LOC: ED 20:18
DX: J18.9 Pneumonia, unspecified organism (principal); R51.9 Headache, unspecified; R20.2 Paresthesia of skin; H53.8 Other visual disturbances; R05.1 Acute cough; I10 Essential (primary) hypertension; E11.42 Type 2 diabetes mellitus with diabetic polyneuropathy; Z79.01 Long term (current) use of anticoagulants; Z79.84 Long term (current) use of oral hypoglycemic drugs; Z79.899 Other long term (current) drug therapy
CPT/HCPCS: 36000; 36415; 70450; 71046; 80048; 83735; 84484; 85025; 87040; 93005; 94640; 96360; 96361; 96365; 96367; 99284; J0456; J0696; J7609; A9270-GY

== ENCOUNTER 2024-05-11 19:00 | Emergency (ER) | payer MEDICARE | END 2024-05-11 19:21 | disposition left against medical advice (07) | LOC: ED 19:00 | DX: Z53.21 Procedure and treatment not carried out due to patient leaving prior to being seen by health care provider (principal) | CPT/HCPCS: 99281 ==